=== PATIENT | female | born 1995 | race Caucasian/White ===

== ENCOUNTER 2023-07-22 09:26 | Outpatient (OUT) | payer OTHER, SELFPAY ==
--- NOTE | 2023-07-22 09:34 | US_ITS ---
[address] [address] Patient Name: KAMRON ADAM MRN: [id number] date: 1995 Sex: F Assigned Patient Location: US Current Patient Location: Accession/Order Number: [id number] Exam Date: 07/22/2023 10:00 Report Date: 07/23/2023 17:37 At the request of: AIDEE CORBIN Procedure: US OB transvaginal EXAMINATION: US OB transvaginal HISTORY: MISSED MENSES COMPARISON: No relevant comparison available. FINDINGS: Heart Rate: 176.0 bpm Number: 1.0 Gestational sac: 4.4 cm, 10 weeks 0 days CRL: 2.4 cm, 9 weeks 1 day Yolk sac: 4.6 mm The uterus is normal, anteverted, anteflexed The ovaries are normal. Cervix: Closed, 4 cm GESTATIONAL AGE: Age by EDC: 10 weeks 6 days LUKAS by EDC: 02/11/2024 Age by US: 9 weeks 1 day LUKAS by US: 02/23/2024 US/US OB transvaginal IMPRESSION: Viable marquez intrauterine gestation measuring 9 weeks 1 day Electronically authenticated by: ITZ CHATTERJEE Date: 07/23/2023 17:37
== END 2023-07-22 09:27 | disposition home or self-care (01) ==
LOC: US 09:31
PROVIDERS: Visit Provider Obstetrics & Gynecology
DX: Z34.91 Encounter for supervision of normal pregnancy, unspecified, first trimester (principal); N92.6 Irregular menstruation, unspecified
CPT/HCPCS: 76817

== ENCOUNTER 2023-07-30 09:08 | Outpatient (OUT) | payer BC, SELFPAY ==
[2023-07-30 09:40] LABS: Basophils Percent Auto 0.3 % (0.2-2.0); Eosinophils Absolute Auto 0.1 10^3/uL (0.0-0.7); Eosinophils Percent Auto 1.8 % (0.9-7.0); Hematocrit 36.6 % (36.0-48.0); Hemoglobin 12.8 g/dL (12.0-16.0); Immature Granulocytes Abs Auto 0.04 10^3/uL (0.00-0.03); Immature Granulocytes Pct Auto 0.5 % (0.0-0.5); Lymphocytes Absolute Auto 1.4 10^3/uL (1.2-3.8); Lymphocytes Percent Auto 18.5 % (20.5-60.0); Mean Platelet Volume 8.9 fL (9.5-13.5); Monocytes Absolute Auto 0.5 10^3/uL (0.3-0.8); Monocytes Percent Auto 7.4 % (1.7-12.0); Neutrophils Absolute Auto 5.2 10^3/uL (1.4-6.5); Neutrophils Percent Auto 71.5 % (43.0-75.0); Platelet Count 276 10^3/uL (150-450); Red Blood Count 4.41 10^6/uL (4.20-5.40); Red Cell Distribution Width 12.3 % (11.0-15.0); White Blood Count 7.3 10^3/uL (4.0-11.0)
[2023-07-30 09:51] LABS: Estimated Average Glucose 91 mg/dL; Glycohemoglobin A1C 4.8 % (4.5-6.2)
[2023-07-30 10:06] LABS: BOX Test Sent Out Y
[2023-07-30 10:08] LABS: Thyroid Stimulating Hormone 1.908 uIU/mL (0.358-3.740)
[2023-07-31 08:12] LABS: HBsAg Screen Negative (Negative); HCV Ab Non Reactive (Non Reactive); Rapid Plasma Reagin, Quant Non Reactive (NonRea<1:1)
[2023-07-31 09:07] LABS: Rubella Antibodies, IgG <0.90 index (Immune >0.99)
[2023-07-31 11:07] LABS: HIV Ab/p24 Ag Screen Non Reactive (Non Reactive)
== END 2023-07-30 09:09 | disposition home or self-care (01) ==
PROVIDERS: Visit Provider Obstetrics & Gynecology
DX: Z34.80 Encounter for supervision of other normal pregnancy, unspecified trimester (principal); N92.6 Irregular menstruation, unspecified
CPT/HCPCS: 36415; 83036; 84443; 85025; 86592; 86762; 86803; 86850; 86900; 86901; 87086; 87340; 87389

== ENCOUNTER 2023-09-20 20:25 | Outpatient (REF) | payer BC, SELFPAY ==
[2023-09-27 15:09] LABS: Age Gdln ACOG Testing Note (.); IGP, rfx Aptima HPV ASCU Note (.)
== END 2023-09-20 20:26 | disposition home or self-care (01) ==
LOC: LAB 20:25
PROVIDERS: Visit Provider Obstetrics & Gynecology
DX: Z01.419 Encounter for gynecological examination (general) (routine) without abnormal findings (principal)
CPT/HCPCS: G0145

== ENCOUNTER 2023-10-10 14:36 | Outpatient (OUT) | payer BC, SELFPAY ==
--- NOTE | 2023-10-10 14:38 | US_ITS ---
[address] [address] Patient Name: KAMRON ADAM MRN: [id number] date: 1995 Sex: F Assigned Patient Location: US Current Patient Location: Accession/Order Number: [id number] Exam Date: 10/10/2023 14:40 Report Date: 10/11/2023 15:35 At the request of: AIDEE CORBIN Procedure: US OB anatomy EXAMINATION: US OB anatomy, US OB transvaginal HISTORY: SECOND TRIMESTER Z34.92 COMPARISON: No relevant comparison available. TECHNIQUE: Transabdominal sonographic examination was performed for obstetrical and evaluation. FINDINGS: Number: 1 Heart Rate: 137.0 bpm H.B. /min Amniotic Fluid Volume: Subjectively normal Placental Location: ANTERIOR with lower margin 8.2 cm from os. Cervix Length: 4.5 cm; closed. ANATOMY: Normal Structures -cerebellum, choroid plexus, cisterna magna, lateral cerebral ventricles, orbits, midline falx, hard palate, four-chamber heart, RVOT, LVOT, stomach, kidneys, bladder, umbilical cord insertion into abdomen, three-vessel cord, right upper extremity, left upper extremity, right lower extremity, left lower extremity. SUBOPTIMALLY SEEN: Spine due to position. ABNORMALITIES: None BIOMETRY: BPD: 4.8 cm 20 weeks 4 days HC: 18.2 cm 20 weeks 4 days AC: 15.2 cm 20 weeks 3 days FL: 3.5 cm 20 weeks 6 days EFW:366.1 grams; 48% FL/AC: 22.8 FL/BPD: 71.6 HC/AC: 1.2 GESTATIONAL AGE: Age by EDC: 20 weeks 4 days LUKAS by EDC: 02/15/2024 Age by current US: 20 weeks 4 days LUKAS by current US: 02/23/2024 US/US OB anatomy IMPRESSION: 1. Single live intrauterine with growth detailed above. 2. Suboptimal visualization of the spine due to position. Electronically authenticated by: EDDY NIELSEN Date: 10/11/2023 15:35
--- NOTE | 2023-10-10 14:38 | US_ITS ---
[address] [address] Patient Name: KAMRON ADAM MRN: [id number] date: 1995 Sex: F Assigned Patient Location: US Current Patient Location: Accession/Order Number: [id number] Exam Date: 10/10/2023 14:40 Report Date: 10/11/2023 15:35 At the request of: AIDEE CORBIN Procedure: US OB transvaginal EXAMINATION: US OB anatomy, US OB transvaginal HISTORY: SECOND TRIMESTER Z34.92 COMPARISON: No relevant comparison available. TECHNIQUE: Transabdominal sonographic examination was performed for obstetrical and evaluation. FINDINGS: Number: 1 Heart Rate: 137.0 bpm H.B. /min Amniotic Fluid Volume: Subjectively normal Placental Location: ANTERIOR with lower margin 8.2 cm from os. Cervix Length: 4.5 cm; closed. ANATOMY: Normal Structures -cerebellum, choroid plexus, cisterna magna, lateral cerebral ventricles, orbits, midline falx, hard palate, four-chamber heart, RVOT, LVOT, stomach, kidneys, bladder, umbilical cord insertion into abdomen, three-vessel cord, right upper extremity, left upper extremity, right lower extremity, left lower extremity. SUBOPTIMALLY SEEN: Spine due to position. ABNORMALITIES: None BIOMETRY: BPD: 4.8 cm 20 weeks 4 days HC: 18.2 cm 20 weeks 4 days AC: 15.2 cm 20 weeks 3 days FL: 3.5 cm 20 weeks 6 days EFW:366.1 grams; 48% FL/AC: 22.8 FL/BPD: 71.6 HC/AC: 1.2 GESTATIONAL AGE: Age by EDC: 20 weeks 4 days LUKAS by EDC: 02/15/2024 Age by current US: 20 weeks 4 days LUKAS by current US: 02/23/2024 US/US OB transvaginal IMPRESSION: 1. Single live intrauterine with growth detailed above. 2. Suboptimal visualization of the spine due to position. Electronically authenticated by: EDDY NIELSEN Date: 10/11/2023 15:35
== END 2023-10-10 14:37 | disposition home or self-care (01) ==
LOC: US 14:37
PROVIDERS: Visit Provider Obstetrics & Gynecology
DX: Z34.92 Encounter for supervision of normal pregnancy, unspecified, second trimester (principal); Z3A.20 20 weeks gestation of pregnancy
CPT/HCPCS: 76805; 76817

== ENCOUNTER 2023-11-07 12:56 | Outpatient (OUT) | payer BC, SELFPAY ==
--- NOTE | 2023-11-07 12:58 | US_ITS ---
[address] [address] Patient Name: KAMRON ADAM MRN: [id number] date: 1995 Sex: F Assigned Patient Location: US Current Patient Location: US Accession/Order Number: [id number] Exam Date: 11/07/2023 12:59 Report Date: 11/07/2023 14:25 At the request of: AIDEE CORBIN Procedure: US OB growth PROCEDURE: US OB growth HISTORY: SV SPINE COMPARISON: None. TECHNIQUE: Transabdominal sonographic examination was performed for obstetrical and evaluation. FINDINGS: Number: 1 Heart Rate: 133.0 bpm H.B. /min Amniotic Fluid Volume: Subjectively normal position: Breech presentation, longitudinal lie Placental Location: ANTERIOR, grade 1 Normal anatomy: Spine GESTATIONAL AGE: Age by EDC: 24 weeks 4 days LUKAS by EDC: 02/23/2024 US/US OB growth IMPRESSION: Normal spine *Reference: [facility] Practice Guideline for the performance of Obstetric Ultrasound Examinations, August 28, 2007. Electronically authenticated by: ITZ CHATTERJEE Date: 11/07/2023 14:25
== END 2023-11-07 12:57 | disposition home or self-care (01) ==
LOC: US 12:56
PROVIDERS: Visit Provider Obstetrics & Gynecology
DX: Z36.2 Encounter for other antenatal screening follow-up (principal); Z3A.24 24 weeks gestation of pregnancy
CPT/HCPCS: 76816

== ENCOUNTER 2023-12-03 10:20 | Outpatient (OUT) | payer BC, SELFPAY ==
--- OUTSIDE RECORDS SUMMARY | 2023-12-03 10:23 | XMS_ITS | CCD ---
Author Name Unknown Address [address] [facility] [address] [place] [address] Organization [facility] Care Team Providers Care Manager Package Name Role Phone Behzad Dumas Primary Care Provider [phone] MARKER, ROBBY Admitting Unavailable MARKER, ROBBY Attending Unavailable MISC, DOCTOR Consulting Unavailable MARKER, ROBBY Consulting Unavailable KIRRENARD, ALCON Consulting Unavailable JOVITA, DAMIAN Consulting Unavailable SELF, SELF Referring Unavailable BEHZAD DUMAS Attending Unavailable LUZMA, BEHZAD Primary Care Unavailable AMANDA PRATER Attending Unavailable IADEE CORBIN Attending Unavailable Medications Current Medications Medication Drug Class(es) Dates Sig (Normalized) Sig (Original) citalopram 20 mg oral tablet (12 sources) Serotonin Reuptake Inhibitor Start: 08-06-2019 End: 09-11-2019 take 1 tablet by mouth once daily citalopram 20 MG Tab tablet Indications: Anxiety Take 1 tablet by mouth daily. 90 tablet 3 09/11/2019 Active Start: 06-12-2018 End: 08-04-2019 take 1 tablet by mouth once daily citalopram (CELEXA) 20 MG Tab tablet Indications: Anxiety Take 1 tablet by mouth daily. 30 tablet 0 06/28/2019 08/04/2019 Discontinued (Reorder) Problems Problem Classification Problem Date Documented Date Episodic/Chronic Anxiety disorders (3 sources) Anxiety; Translations: [Anxiety] Chronic Blindness and vision defects (1 source) Visual disturbance; Translations: [Episode of visual disturbance] Episodic External cause codes: Cut/carvalho (1 source) Contact with sharp glass, initial encounter; Translations: [CONTACT W/SHARP GLASS INITIAL ENC] Onset: 02-07-2020 Headache; including migraine (1 source) Headache; Translations: [Chronic nonintractable headache, unspecified headache type] Episodic Immunizations and screening for infectious disease (1 source) Encounter for immunization; Translations: [ENCOUNTER FOR IMMUNIZATION] Onset: 02-07-2020 Episodic Open wounds of extremities (4 sources) Laceration without foreign body of right lesser toe(s) without damage to nail, initial encounter; Translations: [LAC NO FB RT LSR TOES NO DMG NL INT] Onset: 02-05-2020 Episodic Results Test Name Value Interpretation Reference Range Facil ity CT TEMP BONES WO IVCONon CT TEMP BONES WO IVCON * * *Final Report* * * DATE OF EXAM: Jun 17 2022 6:34PM [facility] 0512 - CT TEMP BONES WO IVCON / PROCEDURE REASON: Cholesteatoma, known or suspected (Ped 0-18y) * * * * Physician Interpretation * * * * EXAMINATION: CT TEMP BONES WO IVCON CLINICAL HISTORY: Cyst left ear, noted by PCP, referred for CT. TECHNIQUE: Spiral 0.6 mm axial scans through the temporal bones without contrast in high resolution bony algorithm. Coronal planar reconstructions provided. MQ: [id number] CT Radiation dose: Integrated Dose-Length Product (DLP) for this visit = 366 mGy*cm. CT Dose Reduction Employed: Automated exposure control (AEC) COMPARISON: None. RESULT: RIGHT: External Auditory Canal/Superficial Soft Tissues: EAC is patent. Overlying superficial soft tissues and the tissues of the visualized inferotemporal fossa are within normal limits. Mastoid Air Cells and Middle Ear Cavities: Mastoid air cells and middle ear cavities are clear. Ossicles: Ossicles are normally aligned and intact. Inner Ear Structures: Inner ear structures are within normal limits. No evidence of dysmorphism, bony destruction or dehiscence. Internal Auditory Canals: IAC is within normal limits of caliber and configuration. Skull Base: No evidence of bony destruction. LEFT: External Auditory Canal/Superficial Soft Tissues: EAC is patent. Overlying superficial soft tissues and the tissues of the visualized inferotemporal fossa are within normal limits. Mastoid Air Cells and Middle Ear Cavities: Mastoid air cells and middle ear cavities are clear. Ossicles: Ossicles are normally aligned and intact. Inner Ear Structures: Inner ear structures are within normal limits. No evidence of dysmorphism, bony destruction or dehiscence. Internal Auditory Canals: IAC is within normal limits of caliber and configuration. Skull Base: No evidence of bony destruction. Hired Worker (topogram) images: No additional findings. IMPRESSION: NORMAL STUDY. Porcelain Finisher: KAITLYN Transcribe Date/Time: Jun 17 2022 6:45P Dictated by : GREYSON TSAI DO This examination was interpreted and the report reviewed and electronically signed by: MEGAN MARX MD on Jun 17 2022 6:58PM EST [id number] [facility] ED NOTEon 06-17-2022 ED NOTE HNO ID: [id number] Author: Harika Khoury RN Service: Emergency Medicine Author Type: Registered Nurse Type: ED Notes Filed: 06/17/2022 7:34 PM Note Text: Discharge instructions provided to patient and family. Verbalized understanding. Alert and oriented. Ambulated with steady gait out of ED with family. [facility] ED NOTE HNO ID: [id number] Author: Rubio Platt RN Service: Nursing Author Type: Registered Nurse Type: ED Notes Filed: 06/17/2022 6:02 PM Note Text: Patient presenting to the ED due to a cyst on her left eardrum. Per the patient, her ENT Dr. Instructed her to come to the ED for a CT scan due to fear that the cyst is spreading. Patient does report at times she is dizzy when bending over and while driving her car she sometimes gets blurred vision. Will continue to assess and monitor the patient [facility] ED PROV NOTEon 06-17-2022 ED PROV NOTE HNO ID: [id number] Author: Cuong Lopez MD Service: Emergency Medicine Author Type: Physician Type: ED Provider Notes Filed: 06/18/2022 1:20 AM Note Text: ED Provider Note Patient Name: Kamron Butcher : 1995 SERVICE DATE: 06/17/22 History Patient presents with: Ear Problem: Pt states has a cyst on left ear and can go to brain . Pt's ear dr told pt need a STAT CT scan. Pt ENT told pt there is no eardrum left . Pt endorsing blurry vision and bad headaches. Pt having left neck pain and unable to hear out of left ear. Ms. Butcher is a 27-year-old female with a history of anxiety who presents to the ED for evaluation of a known cholesteatoma. She was treated for otitis media with multiple antibiotics by her PCP in April. She was also seen in the ED on 06/03 for increasing pain in the left ear and seen by ENT who felt outpatient follow up was appropriate. CT scan was deferred at that time. Two days ago she saw an an ENT PA at [facility] who diagnosed her with a cholesteatoma and recommended outpatient CT scan and follow-up with ENT doc after imaging. This appointment is scheduled for July 15; however, patient is worried that this cholesteatoma is potentially growing into her brain and she would like imaging and to be seen by ENT sooner than her scheduled appointment. She endorses intermittent vertigo and decreased hearing in the left ear. Denies headaches, vision changes, ear pain/ drainage. PMH Anxiety Chronic otitis media Social History Tobacco Use - Smoking status: Not on file - Smokeless tobacco: Not on file Substance and Sexual Activity - Alcohol use: Not on file - Drug use: Not on file - Sexual activity: Not on file ALLERGIES No Known Allergies Review of Systems Constitutional: Negative for chills and fever. HENT: Positive for hearing loss. Negative for ear discharge, ear pain and facial swelling. Eyes: Negative for visual disturbance. Neurological: Positive for dizziness. Negative for headaches. All other systems reviewed and are negative. Physical Exam Vitals [06/17/22 1349] BP Pulse Temp Temp src Resp SpO2 Weight Height 100/80 60 36.8 ?C (98.2 ?F) Oral 18 100 % 68 kg (150 lb) 1.676 m (5' 6 ) Physical Exam Vitals and nursing note reviewed. Constitutional: General: She is not in acute distress. Appearance: Normal appearance. HENT: Head: Atraumatic. Right Ear: Tympanic membrane normal. Left Ear: No drainage, swelling or tenderness. No hemotympanum. Tympanic membrane is not erythematous. Ears: Comments: Cholesteatoma visualized in the left ear canal Mouth/Throat: Mouth: Mucous membranes are moist. Pharynx: No oropharyngeal exudate or posterior oropharyngeal erythema. Eyes: Extraocular Movements: Extraocular movements intact. Pupils: Pupils are equal, round, and reactive to light. Cardiovascular: Rate and Rhythm: Normal rate and regular rhythm. Heart sounds: Normal heart sounds. Pulmonary: Effort: Pulmonary effort is normal. Breath sounds: No wheezing, rhonchi or rales. Skin: General: Skin is warm and dry. Findings: No rash. Neurological: General: No focal deficit present. Mental Status: She is alert and oriented to person, place, and time. Psychiatric: Mood and Affect: Mood normal. Behavior: Behavior normal. Diagnostic Testing Noncontrast CT Temporal Bones RIGHT: External Auditory Canal/Superficial Soft Tissues: ? ?EAC is patent. Overlying superficial soft tissues and the tissues of the visualized inferotemporal fossa are within normal limits. Mastoid Air Cells and Middle Ear Cavities: ? ?Mastoid air cells and middle ear cavities are clear. Ossicles: ? ?Ossicles are normally aligned and intact. Inner Ear Structures: ? ?Inner ear structures are within normal limits. No evidence of dysmorphism, bony destruction or dehiscence. Internal Auditory Canals: ? ?IAC is within normal limits of caliber and configuration. Skull Base: ? ?No evidence of bony destruction. LEFT: External Auditory Canal/Superficial Soft Tissues: ? ?EAC is patent. Overlying superficial soft tissues and the tissues of the visualized inferotemporal fossa are within normal limits. Mastoid Air Cells and Middle Ear Cavities: ? ?Mastoid air cells and middle ear cavities are clear. Ossicles: ? ?Ossicles are normally aligned and intact. Inner Ear Structures: ? ?Inner ear structures are within normal limits. No evidence of dysmorphism, bony destruction or dehiscence. Internal Auditory Canals: ? ?IAC is within normal limits of caliber and configuration. Skull Base: ? ?No evidence of bony destruction. ED Course / Clinical Impression ED Course as of 06/18/22 0120 Cuong Lopez's Documentation Tiffanie Jun 17, 2022 1852 ED STAFF ATTENDING MDM 27 year old with recent bouts of ear pain/otitis, primary Business Services Director diagnosed likely cholesteatoma, recommended CT, patient concerned re: invasion/spread/mor (more content not included)... [facility] CONSULTon 06-04-2022 CONSULT HNO ID: [id number] Author: Carolann Pruitt MD Service: Otolaryngology Author Type: Resident Type: Consults Filed: 06/04/2022 12:33 AM Note Text: OTOLARYNGOLOGY HEAD AND NECK SURGERY CONSULT NOTE Patient: Kamron Butcher : 1995 Date of Service: June 04, 2022 ASSESSMENT AND PLAN: Kamron Butcher is a 26 year old female with history of chronic otitis media and known left TM perforation, migraines who presented to the ED after being told at urgent care that she had a left TM cyst and needed urgent evaluation. The patient has also been experiencing symptoms of nausea and vomiting, has a known history of migraines and has had n/v symptoms in the past as well. Does not have any ear pain or symptoms. On exam left TM appears perforated with thick scar tissue at the anterior portion of the TM, no clear cyst visualized with otoscope. Head and Neck Surgery was consulted for ear evaluation. - No acute surgical intervention needed - Patient has no symptoms at this point and known left TM perforation - Patient has follow up scheduled with [facility] on 06/15 - I can request as well but she states she will follow up with [facility] - Reassured patient - Please page Head and Neck Surgery with any questions or concerns Carolann Pruitt MD PGY-2 Otolaryngology- Head and Neck Surgery Pager: [phone] For all concerns from 5pm to 7am or on the weekends please page [phone]. - - - - - - - - - - - - - - - - - - - - - - - - - - - - - - - - - - - - - - - - - - - - - - - HPI: 26 year old female with history of chronic otitis media and known left TM perforation, migraines who presented to the ED after being told at urgent care that she had a left TM cyst and needed urgent evaluation. The patient has also been experiencing symptoms of nausea and vomiting, has a known history of migraines and has had n/v symptoms in the past as well. Has no ear pain, drainage, tinnitus. No longer is nauseous. No past medical history on file. No past surgical history on file. No family history on file. Social History Tobacco Use - Smoking status: Not on file - Smokeless tobacco: Not on file Substance Use Topics - Alcohol use: Not on file - Drug use: Not on file COMPLETE REVIEW OF SYSTEMS: Negative ROS except as otherwise indicated in the history of present illness section. MEDICATIONS: No current facility-administered medications for this encounter. No current outpatient medications on file. ALLERGIES No Known Allergies PHYSICAL EXAM: Vitals - BP 118/71 Pulse 65 Temp 36.3 ?C (97.3 ?F) (Temporal) Resp 16 Ht 167.6 cm (5' 6 ) Wt 69.4 kg (153 lb) SpO2 100% BMI 24.69 kg/m? Constitutional - General Appearance: well developed, well nourished, without obvious deformities Communication: speaks with a normal voice without hoarseness Overall: no obvious scars, lesions or masses Ears: External auditory canals patent, left tympanic membrane with perforation, anterior portion of left TM appears scarred/thick tissue, no cyst visualized; right TM appears normal. Left mastoid non-tender, non erythematous. Carolann Pruitt MD PGY-2 Otolaryngology- Head and Neck Surgery Pager: [phone] For all concerns from 5pm to 7am or on the weekends please page [phone]. [facility] ED NOTEon 06-04-2022 ED NOTE HNO ID: [id number] Author: Kennedi Brown RN Service: Emergency Medicine Author Type: Registered Nurse Type: ED Notes Filed: 06/04/2022 12:43 AM Note Text: This RN to the room to provide pt with DC/Follow up/Care instructions. Pt verbalizes understanding. Pt ambulates with steady gait, moves all extremities independently, chest rise and fall equal, resps easy unlabored, no signs of distress noted. [facility] ED NOTE HNO ID: [id number] Author: Kennedi Brown RN Service: Emergency Medicine Author Type: Registered Nurse Type: ED Notes Filed: 06/04/2022 12:06 AM Note Text: ENT and Attending at Bedside [facility] ED PROV NOTEon 06-04-2022 ED PROV NOTE HNO ID: [id number] Author: Tyler Brock MD Service: Emergency Medicine Author Type: Physician Type: ED Provider Notes Filed: 06/04/2022 1:29 AM Note Text: ED Provider Note Patient Name: Kamron Butcher : 1995 SERVICE DATE: 06/03/22 History Patient presents with: Cyst: pt reports 2 weeks ago saw doctor, LIP noticed cyst on L ear drum, no pain at that time; N/V/vertigo sx, unsure if it was COVID, got tested at urgent care yesterday and was negative but pt reports having increased pain in L ear, pt reports draininage coming out of L ear earlier today. not actively draining in triage/at this time Nausea AND Vomiting: vertigo x1 month, N/V for 5 days; pt reports for over a month had ear infection, took abx as prescribed 26yo F with Hx of chronic otitis media, migraine, PCOS, and anxiety presented to ED after urgent clinic visit for left ear pain and discharge. She states she been treated for otitis media for the past month, last seen by PCP 05/27/2022 for left ear cyst, left ear decreased hearing, and has a follow up with ENT 06/15/2022. Patient was seen today at bedside with . Patient reports ear pain and drainage, nausea, and vomiting of 5 days. Vertigo HPI No past medical history on file. No past surgical history on file. No family history on file. Social History Tobacco Use - Smoking status: Not on file - Smokeless tobacco: Not on file Substance and Sexual Activity - Alcohol use: Not on file - Drug use: Not on file - Sexual activity: Not on file ALLERGIES No Known Allergies Review of Systems Constitutional: Negative for chills and fever. HENT: Positive for ear discharge and ear pain. Negative for facial swelling, rhinorrhea, sinus pain and sore throat. Eyes: Positive for visual disturbance. Negative for pain. Respiratory: Negative for cough and shortness of breath. Cardiovascular: Negative for chest pain. Gastrointestinal: Positive for nausea and vomiting. Negative for abdominal pain, blood in stool and diarrhea. Genitourinary: Positive for pelvic pain. Skin: Negative for rash. Neurological: Negative for tremors and headaches. Psychiatric/Behavioral: Negative for confusion. The patient is not nervous/anxious. Physical Exam Vitals [06/03/22 191] BP Pulse Temp Temp src Resp SpO2 Weight Height 109/69 61 36.3 ?C (97.3 ?F) Temporal 20 100 % 69.4 kg (153 lb) 1.676 m (5' 6 ) Physical Exam Constitutional: Appearance: She is well-developed and normal weight. HENT: Head: Normocephalic. Right Ear: No tenderness. Left Ear: Ear canal and external ear normal. Decreased hearing noted. Tenderness present. No drainage. There is no impacted cerumen. No foreign body. Tympanic membrane is perforated. Tympanic membrane is not erythematous. Ears: Comments: Healing TM Eyes: General: Vision grossly intact. No allergic shiner. Extraocular Movements: Extraocular movements intact. Right eye: Normal extraocular motion. Left eye: Normal extraocular motion. Cardiovascular: Rate and Rhythm: Normal rate and regular rhythm. Pulmonary: Effort: Pulmonary effort is normal. Abdominal: General: Abdomen is flat. Palpations: Abdomen is soft. Tenderness: There is no abdominal tenderness. Musculoskeletal: Right lower leg: No edema. Left lower leg: No edema. Skin: General: Skin is warm and dry. Neurological: General: No focal deficit present. Mental Status: She is alert and oriented to person, place, and time. Psychiatric: Attention and Perception: Attention normal. Mood and Affect: Mood normal. Speech: Speech normal. Diagnostic Testing ED Labs Ordered and Reviewed - No data to display Procedures ED Course / Clinical Impression Clinical Impressions as of 06/04/22 0004 Chronic otitis media of left ear Ear pain, left Nausea and vomiting, unspecified vomiting type Patient did not have constitutional symptom, vital stable. On ear exam, noted healing TM and perforation however did not have cyst or abscess formation. Therefore further imaging and lab were deferred and advised to follow up with her ENT appointment on 06/15 and additionally arranged ENT appointment at [facility]. MDM / Disposition / Plan 26yo F with Hx of chronic otitis media presented with ear pain and discharge, was told by urgent clinic care LIP yesterday to be evaluated by ENT at ED for possible cyst. Seen by ENT talent acquisition lead at ED, and thought it is stable and can be followed up outpatient. CT temporal bones without contrast was deferred due to lack of constitutional symptom. The patient was DISCHARGED: Counseled patient regarding suspected diagnosis AND need for follow-up. Discharged home with verbal and written instructions. They were instructed to return as needed for persistent or worsening symptoms or any new concerns. Condition at time of disposition: stable SIGNATURE: MD Gurpreet Orellana MD Resident 06/04/22 0020 At (more content not included)... [facility] ED NOTEon 06-03-2022 ED NOTE HNO ID: [id number] Author: STACY Rose Service: Emergency Medicine Author Type: Clinical Case Management Manager Type: ED Notes Filed: 06/03/2022 7:15 PM Note Text: Taking pt vs. [facility] MRI BRAIN WITHOUT CONTRASTon 08-08-2020 IMPRESSION: No intracranial abnormality. Normal MRI of the brain without contrast. [facility] EXAMINATION: MRI OF THE BRAIN WITHOUT CONTRAST 08/08/2020 1:36 pm TECHNIQUE: Multiplanar multisequence MRI of the brain was performed without the administration of intravenous contrast. COMPARISON: None. HISTORY: HISTORY: Past year having blurred vision and ENGLE's getting worse recently. No trauma; FINDINGS: INTRACRANIAL STRUCTURES/VENTRICLES: No acute infarction. No mass effect or midline shift. No acute intracranial hemorrhage. The ventricles and sulci are normal in size and configuration. The sellar/suprasellar regions appear unremarkable. The normal signal voids within the major intracranial vessels appear maintained. ORBITS: The visualized portion of the orbits demonstrate no acute abnormality. SINUSES: The visualized paranasal sinuses and mastoid air cells are well aerated. BONES/SOFT TISSUES: The bone marrow signal intensity appears normal. The soft tissues demonstrate no acute abnormality. [facility] User, Interfaces - 08/08/2020 2:09 PM EDT EXAMINATION: MRI OF THE BRAIN WITHOUT CONTRAST 08/08/2020 1:36 pm TECHNIQUE: Multiplanar multisequence MRI of the brain was performed without the administration of intravenous contrast. COMPARISON: None. HISTORY: HISTORY: Past year having blurred vision and ENGLE's getting worse recently. No trauma; FINDINGS: INTRACRANIAL STRUCTURES/VENTRICLES: No acute infarction. No mass effect or midline shift. No acute intracranial hemorrhage. The ventricles and sulci are normal in size and configuration. The sellar/suprasellar regions appear unremarkable. The normal signal voids within the major intracranial vessels appear maintained. ORBITS: The visualized portion of the orbits demonstrate no acute abnormality. SINUSES: The visualized paranasal sinuses and mastoid air cells are well aerated. BONES/SOFT TISSUES: The bone marrow signal intensity appears normal. The soft tissues demonstrate no acute abnormality. IMPRESSION IMPRESSION: No intracranial abnormality. Normal MRI of the brain without contrast. [facility] XR TOES RT MIN 2 Von 02-04- 020 XR TOES RT MIN 2 V IMAGES REVIEWED: XR TOES RT MIN 2 V COMPARISON: None available. CLINICAL INDICATION: Trauma, pain. FINDINGS/IMPRESSION: 1. Questionable cortical incongruity in the dorsal aspect of a fused fifth middle and distal phalanx on the lateral view. Correlate for focal bony tenderness. The fifth toe appears intact on the frontal and oblique views. 2. No dislocation. Normal [facility] Vital Signs Date Time Vital Sign Value Performing Clinician Barron aguilera 09-11-2019 12:49-0400 BMI (Body Mass Index) 26.96 kg/m2 Behzad Dumas [facility] 09-11-2019 12:49-0400 Body Temperature 97.11 [degF] [facility] 09-11-2019 12:49-0400 Body weight 73.48 kg [facility] 09-11-2019 12:49-0400 BP Diastolic 72 mm[Hg] [facility] 09-11-2019 12:49-0400 BP Systolic 112 mm[Hg] [facility] 09-11-2019 12:49-0400 Height 165.1 cm [facility] 09-11-2019 12:49-0400 Pulse (Heart Rate) 53 /min Behzad Durham [facility] 09-11-2019 12:49-0400 Pulse Oximetry 98 % Behzad Durham [facility] 09-11-2019 12:49-0400 Respiratory Rate 16 /[facility] Date Encounter Type Care Provider Facility Start: 11-17-2023 End: 11-17-2023 ambulatory AIDEE REYNAZIO Not Available Start: 10-18-2023 End: 10-18-2023 ambulatory AMANDA JOSI Not Available Start: 10-29-2021 ambulatory SELF SELF [facility] ([place]) Start: 08-08-2020 End: 08-08-2020 Subsequent hospital visit by physician Behzad Dumas Work Phone: [facility] Comment on above: Arrived Start: 02-05-2020 End: 02-06-2020 Patient encounter procedure ROBBY MARKER Facility:[facility] Start: 09-11-2019 End: 09-11-2019 Letter encounter Provider [place] [facility] Start: 09-11-2019 End: 09-11-2019 Office outpatient visit 15 minutes Behzad Dumas Work Phone: [facility] Comment on above: Anxiety (Primary Dx) Start: 08-04-2019 End: 08-04-2019 Refill Behzad Dumas Work Phone: [facility] [facility] Comment on above: Anxiety (Primary Dx) Start: 07-24-2019 End: 07-24-2019 Letter encounter Behzad Dumas Work Phone: [facility] Start: 06-28-2019 End: 06-28-2019 Refill Behzad Dumas Work Phone: [facility] Comment on above: Anxiety Start: 06-20-2019 End: 06-20-2019 Refill Behzad Dumas Work Phone: [facility] Start: 06-14-2019 End: 06-14-2019 Letter encounter Behzad Dumas Work Phone: [facility] Start: 06-14-2019 End: 06-14-2019 Refill Behzad Dumas Work Phone: [facility] Procedures Date Procedure Procedure Detail Performing Clinician Start: 08-08-2020 MRI of brain and bra in stem Behzad Dumas Work Phone: Plan of Treatment Date Care Activity Detail Author Start: 07-29-2020 Influenza vaccination INFLUENZA VACC INE (#1) [facility] Start: 09-11-2019 End: 09-11-2019 Office Visit 09/11/2019 Office Visit Family Medicine/Behzad Ruth DO [address] [place] [address] [phone] Arrived [facility] Comment on above: Arrived Start: 07-29-2019 Influenza vaccination INFLUENZA VACC INE (#1) [facility] Start: 07-18-2019 End: 07-18-2019 Office Visit 07/18/2019 Office Visit Family Medicine/PedBehzad Cruz DO [address] [place] [address] [place] [address] [phone] [facility] Start: 2017 Screening for malign ant neoplasm of cervix [facility] Start: 2015 Third diphtheria, te tanus and acellular pertussis (DTaP) vaccination TDAP (ADULT) [facility] Start: 2014 Tetanus vaccination [facility] Start: 2012 Screening for Chlamy axel trachomatis CHLAMYDIA SCREEN [facility] Start: 2011 Vaccination for brando n papillomavirus HPV VACCINE ADOL (1 - Female 3-dose series) [facility] Start: 2009 HIV screening HIV SCREENING DISCUSSION [facility] Start: 2007 Vaccination for brando n papillomavirus HPV VACCINE ADOL (1 - 2-dose series) [facility] Start: 1996 GONORRHEA SCREEN GONORRHEA SCREEN [facility] Payers Date Payer Category Payer Unknown [id number] 2016 Unknown [employer] [place] xxxxxxxxxxxx 2016-Present xxxxxxxxxxxx [id number] 2016 Unknown [employer] [place] [id number] 2016-Present [id number] 1996 Unknown [id number] 1996 Unknown [id number] 1996 Unknown [id number] 1996 Unknown [id number] 1959 Unknown [id number] Social History Date Type Detail Facility Start: 06-12-2018 End: 08-05-2020 Tobacco smoking status UTIS Never smoker [facility] Start: 01-05-2017 Alcohol Comment rarely [facility] Sex Assigned At Not on file [facility] Start: 06-12-2018 End: 09-11-2019 Alcohol intake Yes [facility] Start: 08-05-2020 Tobacco use and exposure Never used [facility] Start: 08-05-2020 Alcohol intake Current drinke r of alcohol (finding) [facility] Exposure to SARS-CoV -2 (event) Not sure [facility] Progress note 06-17-2022 Note Date & Type Note Facility 06-17-2022 Note HNO ID: [id number] Author: Sage Marx Jr., [place] Service: Radiology Author Type: Case Management Manager Type: Progress Notes Filed: 06/17/2022 6:37 PM Note Text: Radiology Service Progress Note PATIENT NAME: Kamron Butcher DATE OF SERVICE: June 17, 2022 TIME: 6:36 PM PATIENT IDENTITY VERIFICATION COMPLETED USING TWO (2) IDENTIFIERS: Name and Date of confirmed by patient verbally and Name and Date of confirmed by identification band. FALL SCREENING: Has the patient had 2 falls in the last year or 1 fall with injury or currently using an Ambulatory Assistive Device (Walker, Cane, Wheelchair, Crutches, etc.)? Emergency Room Patient: Screened in ED PATIENT GENDER DATA: Female. status: : No status: NO. PATIENT RELEVANT IMPLANT DATA REVIEWED: Yes RADIOLOGY DEPARTMENT: CT; Exam(s) Completed: Temporal Bones PERIPHERAL IV DATA: Not applicable SIGNED BY: STACY Horner Jr June 17, 2022 6:36 PM [facility] History of Present Illness * Behzad Dumas, - 09/11/2019 1:00 PM EDT HPI She presents today for follow up of anxiety. She has been treated with Celexa for over 3 years. Hercurrent symptoms include worrying, which is minimal. She denies current suicidal or homicidal ideation. Risk factors include previous episode of anxiety. She complains of the following side effects from the treatment: none. Taking medication daily as prescribed except for a few skipped doses because she was running low. She states she can tell considerable difference in mood if she skips a few doses (irritable, out of it ). ROS General: no fevers, no unintentional weight loss Cardiovascular: no chest pain, no palpitations, no LE edema Respiratory: no cough, no shortness of breath Gastrointestinal: no abdominal pain, no nausea or vomiting Skin: no rash Neurological: no syncope, no dizziness, no focal weakness or deficit Exam Blood pressure 112/72, pulse 53, temperature 97.1 F (36.2 C), temperature source Temporal, resp. rate 16, height 1.651 m (5' 5 ), weight 73.5 kg (162 lb), SpO2 98 %. Constitutional: well nourished, well developed, in no acute distress Eyes: sclera and conjunctiva clear ENT: unremarkable appearance of external ears and nose Neck: supple, no JVD Respiratory: breath sounds clear bilaterally Cardiovascular: bradycardic rate, regular rhythm Neurologic: no focal deficits noted Psychiatric: pleasant mood, does not appear anxious, no signs of depression Assessment & Plan Anxiety disorder, stable with SSRI treatment She wants to continue current medication, which I refilled today We will continue to discuss in a year the possible discontinuation of celexa documented in this encounter Assessments Diagnosis Anxiety- Primary Anxiety state, unspecified Diagnosis Chronic nonintractable headache, unspecified headache type Episode of visual disturbance Unspecified visual disturbance Diagnosis Anxiety Anxiety state, unspecified Diagnosis Anxiety- Primary Anxiety state, unspecified Summary Purpose Family History No Family History Records FoundNo Family History Records FoundNo Family History Records FoundNo Family History Records Found Advance Directives No Advanced Directives Records FoundNo Advanced Directives Records FoundNo Advanced Directives Records FoundNo Advanced Directives Records Found Reason for Referral Status Reason Specialty Diagnoses / Procedures Re ferred By Contact Referred To Contact Closed Diagnoses Chronic nonintractable headache, unspecified headache type Episode of visual disturbance Procedures MRI BRAIN WITHOUT CONTRAST [facility] BRAIN Behzad Dumas DO [address] [place] [id number] Additional Source Comments Reason for Visit (unrecogniz ed section and content) Reason Comments Medication Refill Reason Comments Anxiety Pt denies any issues . Denies any side effects on Celexa. Feels it works good. Status Reason Specialty Diagnoses / Procedures Re ferred By Contact Referred To Contact Closed Diagnoses Chronic nonintractable headache, unspecified headache type Episode of visual disturbance Procedures MRI BRAIN WITHOUT CONTRAST VA MRI BRAIN Behzad Dumas [address] [address] INFORMATION SOURCE (unrecogn ized section and content) DATE CREATED AUTHOR 02/07/2020 [facility] DATE CREATED AUTHOR AUTHOR'S ORGANIZ ATION 10/31/2021 [facility] ([place]) DATE CREATED AUTHOR AUTHOR'S ORGANIZ ATION 06/19/2022 [facility] DATE CREATED AUTHOR AUTHOR'S ORGANIZ ATION 11/18/2023 [facility] EPIC FOR RECORDS PERTAINING TO PATIENTS WHO ARE OR HAVE BEEN ENROLLED IN A CHEMICAL DEPENDENCY/SUBSTANCEABUSE PROGRAM, SOME INFORMATION MAY BE OMITTED. This clinical summary was aggregated from multiple sources. Caution should be exercised in using it in the provision of clinical care. This summary normalizes information from multiple sources, and as a consequence, information in this document may materially change the coding, format and clinical context of patient data. In addition, data may be omitted in some cases. CLINICAL DECISIONS SHOULD BE BASED ON THE PRIMARY CLINICAL RECORDS. [email or web address] provides no warranty or guarantee of the accuracy or completeness of information in this document.
[2023-12-03 11:53] LABS: Basophils Percent Auto 0.3 % (0.2-2.0); Eosinophils Absolute Auto 0.2 10^3/uL (0.0-0.7); Eosinophils Percent Auto 2.2 % (0.9-7.0); Hematocrit 32.1 % (36.0-48.0); Hemoglobin 10.7 g/dL (12.0-16.0); Immature Granulocytes Abs Auto 0.17 10^3/uL (0.00-0.03); Immature Granulocytes Pct Auto 1.8 % (0.0-0.5); Lymphocytes Absolute Auto 1.3 10^3/uL (1.2-3.8); Lymphocytes Percent Auto 14.5 % (20.5-60.0); Mean Corpuscular HGB Conc 33.3 g/dL (29.9-35.2); Mean Corpuscular Hemoglobin 29.1 pg (26.7-34.0); Mean Corpuscular Volume 87.2 fL (81.0-99.0); Mean Platelet Volume 9.6 fL (9.5-13.5); Monocytes Absolute Auto 0.5 10^3/uL (0.3-0.8); Monocytes Percent Auto 5.4 % (1.7-12.0); Neutrophils Percent Auto 75.8 % (43.0-75.0); Platelet Count 248 10^3/uL (150-450); Red Blood Count 3.68 10^6/uL (4.20-5.40); Red Cell Distribution Width 12.1 % (11.0-15.0); White Blood Count 9.2 10^3/uL (4.0-11.0)
[2023-12-03 12:17] LABS: Glucose 1 Hour 132 mg/dL
== END 2023-12-03 10:21 | disposition home or self-care (01) ==
PROVIDERS: Visit Provider Physician Assistant
DX: Z34.92 Encounter for supervision of normal pregnancy, unspecified, second trimester (principal)
CPT/HCPCS: 36415; 82950; 85025

== ENCOUNTER 2024-01-09 13:00 | Outpatient (OUT) | payer BC, SELFPAY ==
--- NOTE | 2024-01-09 13:03 | US_ITS ---
[address] [address] Patient Name: KAMRON ADAM MRN: [id number] date: 1995 Sex: F Assigned Patient Location: [facility] Current Patient Location: [facility] Accession/Order Number: [id number] Exam Date: 01/09/2024 13:06 Report Date: 01/09/2024 13:49 At the request of: AIDEE CORBIN Procedure: US OB growth EXAMINATION: US OB growth HISTORY: SGA COMPARISON: No relevant comparison available. FINDINGS: Heart Rate: 138.0 bpm Amniotic Fluid Volume: 16.3 cm Number: 1.0 Position: CEPHALIC Maximum Vertical Pocket: 6.2 cm cm 4.5 cm cm 2.6 cm cm 3.1 cm cm BIOMETRY: BPD: 8.8 cm cm; 35 weeks 3 days; 90% HC: 31.0 cmcm; 34 weeks 4 days, 39% AC: 29.7 cm cm; 33 weeks 4 days, 55% FL: 6.5 cm cm; 33 weeks 4 days; 40.4 % % EFW: 2300.6 grams, 5 lbs. 1 oz., 52% FL/AC: 22.0 FL/BPD: 74.4 HC/AC: 1.0 GESTATIONAL AGE: Age by EDC: 33 weeks 4 days LUKAS by EDC: 02/23/2024 Age by US: 34 weeks 2 days LUKAS by US: 02/18/2024 US/US OB growth IMPRESSION: Normal interval growth Electronically authenticated by: ITZ CHATTERJEE Date: 01/09/2024 13:49
== END 2024-01-09 13:01 | disposition home or self-care (01) ==
LOC: NOMS 13:00
PROVIDERS: Visit Provider Obstetrics & Gynecology
DX: O26.843 Uterine size-date discrepancy, third trimester (principal); Z3A.33 33 weeks gestation of pregnancy
CPT/HCPCS: 76816

== ENCOUNTER 2024-01-19 14:35 | Outpatient (OUT) | payer BC, SELFPAY ==
--- OUTSIDE RECORDS SUMMARY | 2024-01-19 14:55 | XMS_ITS | CCD ---
Author Name Unknown Address [address]: [address] off the [address] [place] [address] Organization [facility] Care Team Providers Care Hospice Plan Administrator Name Role Phone Behzad Dumas Primary Care Provider MARKER, ROBBY Admitting Unavailable MARKER, ROBBY Attending Unavailable MISC, DOCTOR Consulting Unavailable MARKER, ROBBY Consulting Unavailable KIRSCHMANN, ALCON Consulting Unavailable JOVITA, DAMIAN Consulting Unavailable SELF, SELF Referring Unavailable LUZMA, BEHZAD Attending Unavailable BEHZAD DUMAS Primary Care Unavailable PAULINA PRATER Attending Unavailable EVETTE, AIDEE Attending Unavailable EVETTE, AIDEE Attending Unavailable PAULINA PRATER Attending Unavailable EVETTE, AIDEE Attending Unavailable Tasia Bell MD Primary Care Provider Tasia Werner Primary Care Provider Medications Current Medications Medication Drug Class(es) Dates Sig (Normalized) Sig (Original) citalopram 20 mg oral tablet (16 sources) Serotonin Reuptake Inhibitor Start: 10-10-2023 End: 01-10-2024 take 1 tablet by mouth in the morning citalopram (CeleXA) 20 mg tablet Indications: Anxiety and depression TAKE 1 & 1/2 (ONE & ONE-HALF) TABLETS BY MOUTH IN THE MORNING 135 tablet 0 01/10/2024 Active Start: 08-06-2019 End: 09-11-2019 take 1 tablet by mouth once daily citalopram 20 MG Tab tablet Indications: Anxiety Take 1 tablet by mouth daily. 90 tablet 3 09/11/2019 Active Start: 06-12-2018 End: 08-04-2019 take 1 tablet by mouth once daily citalopram (CELEXA) 20 MG Tab tablet Indications: Anxiety Take 1 tablet by mouth daily. 30 tablet 0 06/28/2019 08/04/2019 Discontinued (Reorder) Desiccated Beef Liver powder (2 sources) Desiccated Beef Liver powder Problems Active Problems Problem Classification Problem Date Documented Date Episodic/Chronic Anxiety disorders (5 sources) Anxiety; Translations: [Mixed anxiety and depressive disorder] Onset: 10-01-2020 01-10-2024 Chronic Blindness and vision defects (1 source) Visual disturbance; Translations: [Episode of visual disturbance] Episodic External cause codes: Cut/carvalho (1 source) Contact with sharp glass, initial encounter; Translations: [CONTACT W/SHARP GLASS INITIAL ENC] Onset: 02-07-2020 Headache; including migraine (1 source) Ophthalmic migraine; Translations: [Migraine with aura, not intractable, without status migrainosus] Onset: 10-01-2020 05-06-2022 Chronic Headache; including migraine (1 source) Headache; Translations: [...] NO DMG NL INT] Onset: 02-05-2020 Episodic Other ear and sense organ disorders (1 source) Hearing loss in left ear; Translations: [Unspecified hearing loss, left ear] Onset: 05-07-2021 05-07-2021 Chronic Other endocrine disorders (1 source) Polycystic ovary syndrome; Translations: [Polycystic ovarian syndrome] Onset: 05-17-2022 05-17-2022 Chronic Other and delivery including normal (2 sources) Third trimester ; Translations: [Encounter for supervision of normal , unspecified, third trimester] 01-05-2024 Episodic Short gestation; low weight; and growth retardation (2 sources) Lybki-nsk-eqlob baby; Translations: [Sutter small for gestational age, unspecified weight] 01-05-2024 Episodic Past or Other Problems Problem Classification Problem Date Documented Da te Episodic/Chronic Epilepsy; convulsions (1 source) Neurological finding; Translations: [Unspecified convulsions] Onset: 11-03-2022 11-03-2022 Episodic Mood disorders (1 source) Mood disorders Onset: 07-06-2023 07-06-2023 Other ear and sense organ disorders (1 source) Cholesteatoma; Translations: [Unspecified cholesteatoma, left ear] Onset: 06-15-2022 06-15-2022 Episodic Otitis media and related conditions (1 source) Chronic otitis media; Translations: [Otitis media, unspecified, unspecified ear] Onset: 05-07-2021 05-07-2021 Episodic Unclassified (1 source) Onset: 05-10-2023 05-10-2023 Results Test Name Value Interpretation Reference Range Facility Urinalysis macro (dipstick) panel (U)on 01-05-2024 Bilirubin, UA Negative Negative - 4(70) +++ mg/dL [facility] Blood, UA Negative Negative - 50 Santiago/mcL [facility] Clarity, UA Clear [facility] re Color, UA Yellow [facility] e Glucose, UA Negative Negative - 1999(110) ++++ mg/dL [facility] Interpretation and review of laboratory results Normal [facility] Ketones, UA Negative Negative - 160(16) ++++ mg/dL [facility] Leukocytes, UA Negative Negative - 500+++ Peri/mcL [facility] Nitrite, UA Negative Negative - Positive [facility] pH, UA 6.0 5 - 9 [facility] e Protein, UA Negative Negative - 2000(20) ++++ mg/dL [facility] Spec Grav, UA 1.020 1 - 1.03 [facility] Urobilinogen, UA 0.2 0.2 - 12 mg/dL [facility]P BONES WO IVCONon CT TEMP BONES WO IVCON * * *Final Report* * * DATE OF EXAM: Jun 17 2022 6:34PM [facility] 0512 - CT TEMP BONES [...] Skull Base: No evidence of bony destruction. Licensing Director (topogram) images: No additional findings. IMPRESSION: NORMAL STUDY. Boring And Filling Machine Operator: KAITLYN Transcribe Date/Time: Jun 17 2022 6:45P Dictated by : GREYSON TSAI DO This examination was interpreted and the report reviewed and electronically signed by: MEGAN MARX MD on Jun 17 2022 6:58PM EST [id number] Normal [facility] ED NOTEon 06-17-2022 ED NOTE HNO ID: [id number] Author: Harika Khoury RN Service: Emergency Medicine Author Type: Registered Nurse Type: ED Notes Filed: 06/17/2022 7:34 PM Note Text: Discharge instructions provided to patient and family. Verbalized understanding. Alert and oriented. Ambulated with steady gait out of ED with family. Normal [facility] ED NOTE HNO ID: [id number] Author: Rubio Platt RN Service: Nursing Author [...] to assess and monitor the patient Normal [facility] ED PROV NOTEon 06-17-2022 ED PROV NOTE HNO ID: [id number] Author: Cuong Lopez MD Service: Emergency Medicine Author Type: Physician Type: ED Provider Notes Filed: 06/18/2022 1:20 AM Note Text: ED Provider Note Patient Name: Candice Butcher : 1995 SERVICE DATE: 06/17/22 History [...] she saw an an ENT PA at [facility] who diagnosed her with a cholesteatoma and [...] with recent bouts of ear pain/otitis, primary Web Marketing Strategist diagnosed likely cholesteatoma, recommended CT, patient concerned re: invasion/spread/mor (more content not included)... Normal [facility] CONSULTon 06-04-2022 CONSULT HNO ID: [id number] Author: Carolann Pruitt MD Service: Otolaryngology Author Type: Resident Type: Consults Filed: 06/04/2022 12:33 AM Note Text: OTOLARYNGOLOGY HEAD AND NECK SURGERY CONSULT NOTE Patient: Candice Butcher : 1995 Date of Service: June 04, 2022 ASSESSMENT AND PLAN: Candice Butcher is a 26 year old female [...] - Patient has follow up scheduled with [facility] on 06/15 - I can request as well but she states she will follow up with O[facility] ENT - Reassured patient - Please page Head and Neck Surgery with any questions or concerns Carolann Pruitt MD PGY-2 Otolaryngology- Head and Neck Surgery Pager: [phone] For all concerns from 5pm to 7am or on the weekends please page [phone]. - - - - - - - [...] PGY-2 Otolaryngology- Head and Neck Surgery Pager: [phone] For all concerns from 5pm to 7am or on the weekends please page [phone]. Normal [facility] ED NOTEon 06-04-2022 ED NOTE HNO ID: [id number] Author: Kennedi Brown RN Service: Emergency Medicine Author Type: Registered Nurse Type: ED Notes Filed: 06/04/2022 12:43 AM Note Text: This RN to the room to provide pt with DC/Follow up/Care instructions. Pt verbalizes understanding. Pt ambulates with steady gait, moves all extremities independently, chest rise and fall equal, resps easy unlabored, no signs of distress noted. Normal [facility] ED NOTE HNO ID: [id number] Author: Kennedi Brown RN Service: Emergency Medicine Author Type: Registered Nurse Type: ED Notes Filed: 06/04/2022 12:06 AM Note Text: ENT and Attending at Bedside Normal [facility] ED PROV NOTEon 06-04-2022 ED PROV NOTE HNO ID: [id number] Author: Tyler Brock MD Service: Emergency Medicine Author Type: Physician Type: ED Provider Notes Filed: 06/04/2022 1:29 AM Note Text: ED Provider Note Patient Name: Candice Butcher : 1995 SERVICE DATE: 06/03/22 History [...] rash. Neurological: Negative for tremors and headaches. Psychiatric/Behaviora l: Negative for confusion. The patient is not nervous/anxious. Physical Exam Vitals [06/03/22 1912] BP Pulse Temp Temp src Resp SpO2 [...] 06/15 and additionally arranged ENT appointment at [facility]. MDM / Disposition / Plan 26yo F with Hx of chronic otitis media presented with ear pain and discharge, was told by urgent clinic care [facility] yesterday to be evaluated by ENT at ED for possible cyst. Seen by ENT energy operations vice president at ED, and thought it is stable [...] 0020 At (more content not included)... Normal [facility] ED NOTEon 06-03-2022 ED NOTE HNO ID: [id number] Author: Janell Murry, CT Service: Emergency Medicine Author Type: Clinical Immunopathologist Type: ED Notes Filed: 06/03/2022 7:15 PM Note Text: Taking pt vs. Normal [facility] MRI BRAIN WITHOUT CONTRASTon 08-08-2020 IMPRESSION: No intracranial abnormality. Normal MRI of the brain without contrast. [employer] EXAMINATION: MRI OF THE BRAIN WITHOUT CONTRAST 08/08/2020 1:36 pm TECHNIQUE: Multiplanar multisequence MRI of the brain was performed without the administration of intravenous contrast. COMPARISON: None. HISTORY: HISTORY: Past year having blurred vision and ENGLE's getting worse recently. No trauma; FINDINGS: INTRACRANIAL STRUCTURES/VENTRICLES : No acute infarction. No mass effect or [...] The soft tissues demonstrate no acute abnormality. [employer] User, Interfaces - 08/08/2020 2:09 PM EDT EXAMINATION: MRI OF THE BRAIN WITHOUT CONTRAST 08/08/2020 1:36 pm TECHNIQUE: Multiplanar multisequence MRI of the brain was performed without the administration of intravenous contrast. COMPARISON: None. HISTORY: HISTORY: Past year having blurred vision and ENGLE's getting worse recently. No trauma; FINDINGS: INTRACRANIAL STRUCTURES/VENTRICLES : No acute infarction. No mass effect or [...] Normal MRI of the brain without contrast. [employer] XR TOES RT MIN 2 Von 020 XR TOES RT MIN 2 V [...] oblique views. 2. No dislocation. Normal [facility] Vital Signs Date Time Vital Sign Value Performing Clinician Faci lizetty 01-05-2024 11:40-0500 Body weight 93.8 kg Aidee Evette DO Work Phone: [facility] 01-05-2024 11:40-0500 Diastolic blood pressure 70 mm[Hg] Aidee Evette DO Work Phone: [facility] 01-05-2024 11:40-0500 Systolic blood pressure 106 mm[Hg] Aidee Evette DO Work Phone: [facility] 09-11-2019 12:49-0400 BMI (Body Mass Index) 26.96 kg/m2 Behzad Cerrillos [facility] 09-11-2019 12:49-0400 Body Temperature 97.11 [degF] Behzad [facility] 09-11-2019 12:49-0400 Body weight 73.48 kg [facility] [employer] 09-11-2019 12:49-0400 BP Diastolic 72 mm[Hg] [facility] 09-11-2019 12:49-0400 BP Systolic 112 mm[Hg] Behzad [facility] 09-11-2019 12:49-0400 Height 165.1 cm [facility] [employer] 09-11-2019 12:49-0400 Pulse (Heart Rate) 53 /min [facility] [employer] 09-11-2019 12:49-0400 Pulse Oximetry 98 % Behzad Cerrillos [employer] 09-11-2019 12:49-0400 Respiratory Rate 16 /[facility] [employer] Encounters Encounter Date Encounter Type Care Provider Facility Start: 01-10-2024 Refill Tasia harry STOCK WETTER-HAIR BOILER Work Phone: [facility] Comment on above: Anxiety and depressi on Start: 01-05-2024 End: 01-05-2024 ambulatory AIDEE EVETTE Not Available Start: 01-05-2024 End: 01-05-2024 flow sheet Aidee Evette DO Work Phone: [facility] Comment on above: Third trimester preg lona; Small for gestational age Start: 12-19-2023 End: 12-19-2023 ambulatory AIDEE EVETTE Not Available Start: 12-05-2023 End: 12-05-2023 ambulatory PAULINA JOSI Not Available Start: 11-17-2023 End: 11-17-2023 ambulatory AIDEE EVETTE Not Available Start: 10-18-2023 End: 10-18-2023 ambulatory PAULINA JOSI Not Available Start: 10-29-[address] [facility] ([place]) Start: 08-08-2020 End: 08-08-2020 Subsequent hospital visit by physician Behzad Dumas Work Phone: [facility] Comment on above: Arrived Start: 02-05-2020 End: 02-06-2020 Patient encounter procedure ROBBY MARKER Facility:[facility] Start: 09-11-2019 End: 09-11-2019 Letter encounter Provider [facility] Start: 09-11-2019 End: 09-11-2019 Office outpatient visit 15 minutes Behzad Dumas Work Phone: [facility] Comment on above: Anxiety (Primary Dx) Start: 08-04-2019 End: 08-04-2019 Refill Behzad Dumas Work Phone: [facility] Comment on above: Anxiety (Primary Dx) Start: 07-24-2019 End: 07-24-2019 Letter encounter Behzad Dumas Work Phone: [facility] Start: 06-28-2019 End: 06-28-2019 Refill Behzad Dumas Work Phone: [facility] Comment on above: Anxiety Start: 06-20-2019 End: 06-20-2019 Refill Behzad Dumas Work Phone: [facility] Start: 06-14-2019 End: 06-14-2019 Letter encounter Behzad Dumas Work Phone: [facility] Start: 06-14-2019 End: 06-14-2019 Refill Behzad Dumas Work Phone: [facility] Procedures Date Procedure Procedure Detail Performing Clinician Start: 01-05-2024 Urnls dip stick/tabl et rgnt non-auto w/o micrscp Aidee Evette DO Work Phone: Start: 07-06-2023 Adult depression scr eening assessment Tasia Bell APRN-HAIR BOILER Work Phone: Start: 05-17-2022 Microscopic observat ion [Identifier] in Cervix by Cyto stain Tasia Bell APRN-HAIR BOILER Work Phone: Start: 08-08-2020 MRI of brain and bra in stem Behzad Dumas Work Phone: Plan of Treatment Date Care Activity Detail Author Start: 05-17-2025 Screening for malign ant neoplasm of cervix Pap Smear [facility] Start: 07-06-2024 Adult BMI Screening Adult BMI Screen ing [facility] Start: 07-06-2024 Depression Screening Depression Scre ening [facility] Start: 07-06-2024 Tobacco Screening Tobacco Screening [facility] Start: 03-28-2024 End: 03-28-2024 Clinical Support [facility] Start: 01-19-2024 End: 01-19-2024 Patient encounter procedure 01/19/2024 2:00 PM EST Routine [facility] [address] [address] Paulina Prater PA [address] [place], [place] [id number] [facility] Start: 01-09-2024 End: 01-09-2024 Professional / ancillary services management 01/09/2024 1:00 PM EST Ancillary Procedure [facility] [address] [address] [facility] Start: 01-05-2024 End: 01-05-2025 US for US OB SCAN FOR GROWTH Imaging Routine Small for gestational age Expected: 01/05/2024 (Approximate), Expires: 01/05/2025 [facility] Work Phone: Comment on above: Expected: 01/05/2024 (Approximate), Expires: 01/05/2025 Start: 11-03-2023 Adult BMI Follow Up Plan Adult BMI Follow Up Plan [facility] Start: 07-29-2023 Influenza vaccination Influenza Vacc ine [facility] Start: 07-29-2020 Influenza vaccination INFLUENZA VACC INE (#1) [facility] Start: 09-11-2019 End: 09-11-2019 Office Visit 09/11/2019 Office Visit Family Medicine/Radhas Behzad Dumas DO [address] [place] [address] [phone] Arrived [facility] Comment on above: Arrived Start: 07-29-2019 Influenza vaccination INFLUENZA VACC INE (#1) [facility] Start: 07-18-2019 End: 07-18-2019 Office Visit 07/18/2019 Office Visit Family Medicine/Behzad Ruth, DO [address] [address] [phone] [facility] Start: 2017 Screening for malign ant neoplasm of cervix [facility] Start: 2015 DTaP,Tdap and Td Vac cines (1 - Tdap) DTaP,Tdap and Td Vaccines (1 - Tdap) [facility] Start: 2015 Third diphtheria, te tanus and acellular pertussis (DTaP) vaccination TDAP (ADULT) [facility] Start: 2014 Tetanus vaccination TETANUS [facility] Start: 2012 Screening for Chlamy axel trachomatis CHLAMYDIA SCREEN [facility] Start: 2011 Vaccination for brando n papillomavirus HPV VACCINE ADOL (1 - Female 3-dose series) [facility] Start: 2009 HIV screening HIV SCREENING DISCUSSION [facility] Start: 2007 Vaccination for brando n papillomavirus HPV VACCINE ADOL (1 - 2-dose series) [facility] Start: 1996 GONORRHEA SCREEN GONORRHEA SCREEN [facility] Payers Date Payer Category Payer Unknown [id number] 2023 Unknown BCBS BCBS xxxxxx [id number] 2023-Present [phone] [address] [place] [address] [id number] 2022 Private Health Insurance ZENIA KNUTSON [id number] 2022-Present [phone] [address] [place] [address] [id number] 2016 Unknown [employer] [place] xxxxxxxxxxxx 2016-Present [id number] 2016 Unknown [employer] [place] [id number] 2016-Present [id number] 1996 Unknown [id number] 1995 Unknown [id number] 1996 Unknown [id number] 1996 Unknown [id number] 1995 Unknown [id number] 1995 Unknown [id number] 1995 Unknown [id number] 1959 Unknown [id number] Social History Date Type Detail Facility Start: 06-12-2018 End: 09-22-2022 Tobacco smoking status [facility] Never smoker [facility] Start: 01-05-2017 Alcohol Comment rarely [facility] Start: 1995 Sex Assigned At Not on file [facility] Start: 06-12-2018 End: 01-08-2021 Alcohol intake Yes [facility] Start: 08-05-2020 End: 09-22-2022 Tobacco use and exposure Never used [facility] Start: 08-05-2020 Alcohol intake Current drinke r of alcohol (finding) [facility] Exposure to SARS-CoV -2 (event) Not sure [facility] Tobacco smoking stat us NHIS Tobacco smoking consumption unknown [facility] Start: 06-02-2023 [facility] Start: 07-06-2023 Alcohol intake Ex-drinker (finding) [facility] Start: 01-08-2021 End: 07-06-2023 History of Social function [facility] Adolescent depressio n screening assessment 0 [facility] History of Present illness Narrative 01-05-2024 Aidee Alas DO - 01/05/2024 11:30 AM EST Note Date & Type Note Facility 01-05-2024 History of Presen t illness Narrative Reason for Appointment: Patient ID: Candice Hodge is a 28 y.o. female who presents for Routine Visit Patient presents today for Return OB appointment. Current Medications: has a current medication list which includes the following prescription(s): citalopram and desiccated beef liver. Medical History: Active Ambulatory Problems Diagnosis Date Noted No Active Ambulatory Problems Resolved Ambulatory Problems Diagnosis Date Noted No Resolved Ambulatory Problems No Additional Past Medical History No family history on file. Social History Tobacco Use Smoking status: Not on file Smokeless tobacco: Not on file Substance Use Topics Alcohol use: Not on file Drug use: Not on file History reviewed. No pertinent surgical history. No Known Allergies Review of Systems: Review of Systems Constitutional: Negative. HENT: Negative. Eyes: Negative. Respiratory: Negative. Cardiovascular: Negative. Gastrointestinal: Negative. Genitourinary: Negative. Musculoskeletal: Negative. Skin: Negative. Neurological: Negative. All other systems reviewed and are negative. Hematological: Negative. Endocrine: Negative. Allergic/Immunologic: Negative. Objective Physical Exam Constitutional: Appearance: Normal appearance. She is well-developed. Cardiovascular: Rate and Rhythm: Normal rate and regular rhythm. Pulmonary: Effort: Pulmonary effort is normal. Breath sounds: Normal breath sounds. Abdominal: General: Bowel sounds are normal. There is no distension. Palpations: Abdomen is soft. Tenderness: There is no abdominal tenderness. There is no guarding or rebound. Musculoskeletal: General: No swelling. Normal range of motion. Right lower leg: No edema. Left lower leg: No edema. Neurological: Mental Status: She is alert and oriented to person, place, and time. Skin: General: Skin is warm and dry. Psychiatric: Mood and Affect: Mood normal. Behavior: Behavior normal. Vitals and nursing note reviewed. Exam conducted with a field operations supervisor present. Vitals: There is no height or weight on file to calculate BMI. BP: 106/70 Patient's last menstrual period was 05/07/2023. Assessment/Plan Encounter Diagnoses Name Primary? Third trimester Small for gestational age Patient presents today for a routine obstetrics appointment. Patient is currently 33w4d . Patient states she is doing well but has complaints of being tired due to current . Patient has verbalizes frequent movement. labor precautions was discussed/given and patient was instructed to perform kick counts three times a day. Follow Up: Patient is to return to office in 2 week for routine OB appointment. Documented by Aidee Alas DO on behalf of: Aidee Alas DO documented in this encounter [facility] Healthcare Progress note 06-17-2022 Note Date & Type Note Facility 06-17-2022 Note HNO ID: [id number] Author: Sage Marx Jr., CT Service: Radiology Author Type: Immunopathologist Type: Progress Notes Filed: 06/17/2022 6:37 PM Note Text: Radiology Service Progress Note PATIENT NAME: Candice Butcher DATE OF SERVICE: June 17, 2022 [...] Horner Jr June 17, 2022 6:36 PM [facility] Evaluation note Note Date & Type Note Facility Evaluation note Diagnosis Third trimester state, incidental Small for gestational age [id number] without mention of malnutrition, unspecified (weight) documented in this encounter [facility] Healthcare Evaluation note Note Date & Type Note Facility Evaluation note Diagnosis Anxiety and depression documented in this encounter [facility] Instructions Note Date & Type Note Facility Instructions Not on filedocumented in this en counter [facility] History of Present Illness * Behzad Dumas DO - 09/11/2019 1:00 PM EDT HPI She [...] visual disturbance Procedures MRI BRAIN WITHOUT CONTRAST ND MRI BRAIN Behzad Dumas DO [address] [address] Additional Source Comments Reason for Visit (unrecogniz ed section and content) Reason Comments Medication Refill Reason Comments Anxiety Pt denies any issues . Denies any side effects on Celexa. Feels it works good. Status Reason Specialty Diagnoses / Procedures Re ferred By Contact Referred To Contact Closed Diagnoses Chronic nonintractable headache, unspecified headache type Episode of visual disturbance Procedures MRI BRAIN WITHOUT CONTRAST ND MRI BRAIN Behzad Dumas DO [address] [address] Reason Comments Routine Visit Reason Comments Med Refill INFORMATION SOURCE (unrecogn ized section and content) DATE CREATED AUTHOR 02/07/2020 [facility] DATE CREATED AUTHOR AUTHOR'S ORGANIZ ATION 10/31/2021 [facility] ([place]) DATE CREATED AUTHOR AUTHOR'S ORGANIZ ATION 06/19/2022 [facility] DATE CREATED AUTHOR AUTHOR'S ORGANIZ ATION 01/06/2024 [facility] dical Specialists EPIC Care Teams (unrecognized sec tion and content) Hospice Plan Administrator Relationship Specialty Start Date End Date Tasia Bell MD [facility] [address] [place] [address] PCP - General Family Medicine 07/22/23 Hospice Plan Administrator Relationship Specialty Start Date End Date Tasia Bell APRN-HAIR BOILER PCP - General Nurse Practitioner 06/20/23 FOR RECORDS PERTAINING TO PATIENTS WHO ARE [...] BE BASED ON THE PRIMARY CLINICAL RECORDS. [facility]. provides no warranty or guarantee of the accuracy or completeness of information in this document.
[2024-01-19 14:58] LABS: Basophils Percent Auto 0.2 % (0.2-2.0); Eosinophils Absolute Auto 0.2 10^3/uL (0.0-0.7); Eosinophils Percent Auto 1.5 % (0.9-7.0); Hematocrit 32.3 % (36.0-48.0); Hemoglobin 10.5 g/dL (12.0-16.0); Immature Granulocytes Abs Auto 0.18 10^3/uL (0.00-0.03); Immature Granulocytes Pct Auto 1.8 % (0.0-0.5); Lymphocytes Absolute Auto 1.3 10^3/uL (1.2-3.8); Lymphocytes Percent Auto 12.9 % (20.5-60.0); Mean Corpuscular HGB Conc 32.5 g/dL (29.9-35.2); Mean Corpuscular Hemoglobin 27.6 pg (26.7-34.0); Mean Corpuscular Volume 84.8 fL (81.0-99.0); Mean Platelet Volume 9.6 fL (9.5-13.5); Monocytes Absolute Auto 0.8 10^3/uL (0.3-0.8); Monocytes Percent Auto 7.6 % (1.7-12.0); Neutrophils Absolute Auto 7.5 10^3/uL (1.4-6.5); Platelet Count 289 10^3/uL (150-450); Red Blood Count 3.81 10^6/uL (4.20-5.40); Red Cell Distribution Width 12.5 % (11.0-15.0); White Blood Count 9.9 10^3/uL (4.0-11.0)
== END 2024-01-19 14:36 | disposition home or self-care (01) ==
LOC: LAB 14:37
PROVIDERS: Visit Provider Physician Assistant
DX: Z34.93 Encounter for supervision of normal pregnancy, unspecified, third trimester (principal); D64.9 Anemia, unspecified
CPT/HCPCS: 36415; 85025

== ENCOUNTER 2024-01-26 19:07 | Outpatient (REF) | payer BC, SELFPAY ==
--- OUTSIDE RECORDS SUMMARY | 2024-01-26 19:30 | XMS_ITS | CCD ---
Author Name Unknown Address [address] [place] [address] Organization [facility] Care Team Providers Care Marine Pipefitter Name Role Phone Behzad Dumas Primary Care Provider [phone] MARKER, ROBBY Admitting Unavailable MARKER, ROBBY Attending [...] low weight; and growth retardation (2 sources) Vaqet-jks-mymwn baby; Translations: [[place] small for gestational age, unspecified weight] 01-05-2024 [...] UA Negative Negative - 4(70) +++ mg/dL [facility] Blood, UA Negative Negative - 50 Santiago/mcL [facility] Clarity, UA Clear [facility] Healthnm re Color, UA Yellow [facility] e Glucose, UA Negative Negative - 1999(110) ++++ mg/dL [facility] Interpretation and review of laboratory results Normal [facility] Ketones, UA Negative Negative - 160(16) ++++ mg/dL [facility] Leukocytes, UA Negative Negative - 500+++ Peri/mcL [facility] Nitrite, UA Negative Negative - Positive [facility] pH, UA 6.0 5 - 9 [facility] e Protein, UA Negative Negative - 2000(20) ++++ mg/dL [facility] Spec Grav, UA 1.020 1 - 1.03 [facility] Urobilinogen, UA 0.2 0.2 - 12 mg/dL [facility]P BONES WO IVCONon CT TEMP BONES WO IVCON * * *Final Report* * * DATE OF EXAM: Jun 17 2022 6:34PM [facility] 0512 - CT TEMP BONES [...] Skull Base: No evidence of bony destruction. Women'S Studies Professor (topogram) images: No additional findings. IMPRESSION: NORMAL STUDY. Congressional Assistant: KAITLYN Transcribe Date/Time: Jun 17 2022 6:45P Dictated by : GREYSON TSAI DO This examination was interpreted and the report reviewed and electronically signed by: MEGAN MARX MD on Jun 17 2022 6:58PM EST [id number] Normal [facility] ED NOTEon 06-17-2022 ED NOTE HNO ID: [id number] Author: Harika Khoury RN Service: Emergency Medicine Author Type: Registered Nurse Type: ED Notes Filed: 06/17/2022 7:34 PM Note Text: Discharge instructions provided to patient and family. Verbalized understanding. Alert and oriented. Ambulated with steady gait out of ED with family. Normal [facility] ED NOTE HNO ID: [id number] Author: Rubio Platt RN Service: Nursing Author [...] to assess and monitor the patient Normal [facility] ED PROV NOTEon 06-17-2022 ED PROV NOTE HNO ID: [id number] Author: Cuong Lopez MD Service: Emergency Medicine [...] she saw an an ENT PA at [facility] who diagnosed her with a cholesteatoma and [...] with recent bouts of ear pain/otitis, primary Job Training Supervisor diagnosed likely cholesteatoma, recommended CT, patient concerned re: invasion/spread/mor (more content not included)... Normal [facility] CONSULTon 06-04-2022 CONSULT HNO ID: [id number] Author: Carolann Pruitt MD Service: Otolaryngology Author [...] PGY-2 Otolaryngology- Head and Neck Surgery Pager: [phone] For all concerns from 5pm to 7am or on the weekends please page [phone]. - - - - - - - [...] PGY-2 Otolaryngology- Head and Neck Surgery Pager: [phone] For all concerns from 5pm to 7am or on the weekends please page [phone]. Normal [facility] ED NOTEon 06-04-2022 ED NOTE HNO ID: [id number] Author: Kennedi Brown RN Service: Emergency Medicine Author Type: Registered Nurse Type: ED Notes Filed: 06/04/2022 12:43 AM Note Text: This RN to the room to provide pt with DC/Follow up/Care instructions. Pt verbalizes understanding. Pt ambulates with steady gait, moves all extremities independently, chest rise and fall equal, resps easy unlabored, no signs of distress noted. Normal [facility] ED NOTE HNO ID: [id number] Author: Kennedi Brown RN Service: Emergency Medicine Author Type: Registered Nurse Type: ED Notes Filed: 06/04/2022 12:06 AM Note Text: ENT and Attending at Bedside Normal [facility] ED PROV NOTEon 06-04-2022 ED PROV NOTE HNO ID: [id number] Author: Tyler Brock MD Service: Emergency Medicine [...] 06/15 and additionally arranged ENT appointment at [facility]. MDM / Disposition / Plan 26yo F with Hx of chronic otitis media presented with ear pain and discharge, was told by urgent clinic care [facility] yesterday to be evaluated by ENT at ED for possible cyst. Seen by ENT senior applications developer at ED, and thought it is stable [...] 0020 At (more content not included)... Normal [facility] ED NOTEon 06-03-2022 ED NOTE HNO ID: [id number] Author: Janell Murry, CT Service: Emergency Medicine Author Type: Clinical Hog Ribber Type: ED Notes Filed: 06/03/2022 7:15 PM Note Text: Taking pt vs. Normal [facility] MRI BRAIN WITHOUT CONTRASTon 08-08-2020 IMPRESSION: No intracranial abnormality. Normal MRI of the brain without contrast. [facility] EXAMINATION: MRI OF THE BRAIN WITHOUT CONTRAST [...] The soft tissues demonstrate no acute abnormality. [employer] User, Interfaces - 08/08/2020 2:09 PM EDT [...] MRI of the brain without contrast. [facility] XR TOES RT MIN 2 Von 020 [...] oblique views. 2. No dislocation. Normal [facility] Vital Signs Date Time Vital Sign Value Performing Clinician Faci lizetty 01-05-2024 11:40-0500 Body weight 93.8 kg Aidee Evette DO Work Phone: [facility] 01-05-2024 11:40-0500 Diastolic blood pressure 70 mm[Hg] Aidee Evette DO Work Phone: [facility] 01-05-2024 11:40-0500 Systolic blood pressure 106 mm[Hg] Aidee Evette DO Work Phone: [facility] 09-11-2019 12:49-0400 BMI (Body Mass Index) 26.96 kg/m2 Behzad [facility] 09-11-2019 12:49-0400 Body Temperature 97.11 [degF] Behzad [facility] 09-11-2019 12:49-0400 Body weight 73.48 kg [facility] 09-11-2019 12:49-0400 BP Diastolic 72 mm[Hg] [facility] 09-11-2019 12:49-0400 BP Systolic 112 mm[Hg] Behzad [facility] 09-11-2019 12:49-0400 Height 165.1 cm [facility] 09-11-2019 12:49-0400 Pulse (Heart Rate) 53 /min [facility] 09-11-2019 12:49-0400 Pulse Oximetry 98 % Behzad [facility] 09-11-2019 12:49-0400 Respiratory Rate 16 /min [facility] En[facility] Encounter Date Encounter Type Care Provider Facility Start: 01-10-2024 Refill Tasia harry CHROME PLATER-OVERNIGHT STOCKER Work Phone: [facility] Comment [...] Not Available Start: 10-29-2021 ambulatory SELF SELF [facility] Start: 08-08-2020 End: 08-08-2020 Subsequent hospital visit by physician Behzad Dumas Work Phone: [place] [employer] [facility] Comment on above: Arrived Start: 02-05-2020 End: 02-06-2020 Patient encounter procedure ROBBY MARKER Facility:[facility] Start: 09-11-2019 End: 09-11-2019 Letter encounter Provider [place] [facility] Start: 09-11-2019 End: 09-11-2019 Office outpatient visit 15 minutes Behzad Dumas Work Phone: [facility] Comment on above: Anxiety (Primary Dx) Start: 08-04-2019 End: 08-04-2019 Refill Behzad Dumas Work Phone: [facility] Comment on above: Anxiety (Primary Dx) Start: 07-24-2019 End: 07-24-2019 Letter encounter Behzad Dumas Work Phone: [facility] Start: 06-28-2019 End: 06-28-2019 Refill Behzad Dumas Work Phone: [facility] Comment on above: Anxiety Start: 06-20-2019 End: 06-20-2019 Refill Behzad Dumas Work Phone: [facility] Start: 06-14-2019 End: 06-14-2019 Letter encounter Behzad Dumas Work Phone: [facility] Start: 06-14-2019 End: 06-14-2019 Refill Behzad Dumas Work Phone: [facility] Procedures Date Procedure Procedure Detail Performing Clinician Start: 01-05-2024 Urnls dip stick/tabl et rgnt non-auto w/o micrscp Aidee Evette DO Work Phone: Start: 07-06-2023 Adult depression scr eening assessment Tasia Bell APRN-OVERNIGHT STOCKER Work Phone: Start: 05-17-2022 Microscopic observat ion [Identifier] in Cervix by Cyto stain Tasia Bell APRN-OVERNIGHT STOCKER Work Phone: Start: 08-08-2020 MRI of brain and bra in stem Behzad Dumas Work Phone: Plan of Treatment Date Care Activity Detail Author Start: 05-17-2025 Screening for malign ant neoplasm of cervix Pap Smear [facility] Start: 07-06-2024 Adult BMI Screening Adult BMI Screen ing [facility] Start: 07-06-2024 Depression Screening Depression Scre ening [facility] Start: 07-06-2024 Tobacco Screening Tobacco Screening [facility] Start: 03-28-2024 End: 03-28-2024 Clinical Support [facility] Start: 01-19-2024 End: 01-19-2024 Patient encounter procedure 01/19/2024 2:00 PM EST Routine [facility] [address] [address] Paulina Prater PA [address] [place], [place] [id number] [facility] Start: 01-09-2024 End: 01-09-2024 Professional / ancillary services management 01/09/2024 1:00 PM EST Ancillary Procedure [facility] [address] [place] [address] [facility] Start: 01-05-2024 End: 01-05-2025 US for US OB SCAN FOR GROWTH Imaging Routine Small for gestational age Expected: 01/05/2024 (Approximate), Expires: 01/05/2025 [facility] Work Phone: Comment on above: Expected: 01/05/2024 (Approximate), Expires: 01/05/2025 Start: 11-03-2023 Adult BMI Follow Up Plan Adult BMI Follow Up Plan [facility] Start: 07-29-2023 Influenza vaccination Influenza Vacc ine [facility] Start: 07-29-2020 Influenza vaccination INFLUENZA VACC INE (#1) [facility] Start: 09-11-2019 End: 09-11-2019 Office Visit 09/11/2019 Office Visit Family Medicine/Radhas Behzad Dumas DO [address] [place] [address] [phone] Arrived [facility] Comment on above: Arrived Start: 07-29-2019 Influenza vaccination INFLUENZA VACC INE (#1) [facility] Start: 07-18-2019 End: 07-18-2019 Office Visit 07/18/2019 Office Visit Family Medicine/Behzad Ruth, DO [address] [address] [phone] [facility] Start: 2017 Screening for malign ant neoplasm of cervix [facility] Start: 2015 DTaP,Tdap and Td Vac cines (1 - Tdap) DTaP,Tdap and Td Vaccines (1 - Tdap) [facility] Start: 2015 Third diphtheria, te tanus and acellular pertussis (DTaP) vaccination TDAP (ADULT) [facility] Start: 2014 Tetanus vaccination [facility] Start: 2012 Screening for Chlamy axel trachomatis CHLAMYDIA SCREEN [facility] Start: 2011 Vaccination for brando n papillomavirus HPV VACCINE ADOL (1 - Female 3-dose series) [facility] Start: 2009 HIV screening HIV SCREENING DISCUSSION [facility] Start: 2007 Vaccination for brando n papillomavirus HPV VACCINE ADOL (1 - 2-dose series) [facility] Start: 1996 GONORRHEA SCREEN GONORRHEA SCREEN [facility] Payers Date Payer Category Payer Unknown [id number] 2023 Unknown BCBS BCBS xxxxxx [id number] 2023-Present [phone] [address] [place] [address] [id number] 2022 Private Health Insurance ZENIA KNUTSON [id number] 2022-Present [phone] [address] [place] [address] [id number] 2016 Unknown [employer] M [place] [id number] 2016-Present [id number] 2016 Unknown [employer] M [place] [id number] 2016-Present [id number] 1996 Unknown [id number] 1996 Unknown [id number] 1996 Unknown [id number] 1996 Unknown [id number] 1996 Unknown [id number] 1996 Unknown [id number] 1996 Unknown [id number] 1959 Unknown [id number] Social History Date Type Detail Facility Start: 06-12-2018 End: 09-22-2022 Tobacco smoking status [facility] Never smoker [facility] Start: 01-05-2017 Alcohol Comment rarely [facility] Start: 1996 Sex Assigned At Not on file [facility] Start: 06-12-2018 End: 01-08-2021 Alcohol intake Yes [facility] Start: 08-05-2020 End: 09-22-2022 Tobacco use and exposure Never used [facility] Start: 08-05-2020 Alcohol intake Current drinke r of alcohol (finding) [facility] Exposure to SARS-CoV -2 (event) Not sure [facility] Tobacco smoking stat us NHIS Tobacco smoking consumption unknown [facility] Start: 06-02-2023 [facility] Start: 07-06-2023 Alcohol intake Ex-drinker (finding) [facility] Start: 01-08-2021 End: 07-06-2023 History of Social function [facility] Adolescent depressio n screening assessment 0 [facility] History of Present illness Narrative 01-05-2024 Aidee [...] nursing note reviewed. Exam conducted with a gum scoring machine operator present. Vitals: There is no height or [...] Aidee Alas DO documented in this encounter [facility] Healthcare Progress note 06-17-2022 Note Date & Type Note Facility 06-17-2022 Note HNO ID: [id number] Author: Sage Marx Jr., CT Service: Radiology Author Type: Hog Ribber Type: Progress Notes Filed: 06/17/2022 6:37 PM [...] Horner Jr June 17, 2022 6:36 PM [facility] Evaluation note Note Date & Type Note Facility Evaluation note Diagnosis Third trimester state, incidental Small for gestational age [id number]-[id number] without mention of malnutrition, unspecified (weight) documented in this encounter [facility] Healthcare Evaluation note Note Date & Type Note Facility Evaluation note Diagnosis Anxiety and depression documented in this encounter [facility] Instructions Note Date & Type Note Facility Instructions Not on filedocumented in this en counter [facility] History of Present Illness [...] visual disturbance Procedures MRI BRAIN WITHOUT CONTRAST [place] MRI BRAIN Behzad Dumas DO [address] [address] Additional Source Comments Reason for Visit (unrecogniz ed section and content) Reason Comments Medication Refill Reason Comments Anxiety Pt denies any issues . Denies any side effects on Celexa. Feels it works good. Status Reason Specialty Diagnoses / Procedures Re ferred By Contact Referred To Contact Closed Diagnoses Chronic nonintractable headache, unspecified headache type Episode of visual disturbance Procedures MRI BRAIN WITHOUT CONTRAST [place] MRI BRAIN Behzad Dumas DO [address] [address] Reason Comments Routine Visit Reason Comments Med Refill INFORMATION SOURCE (unrecogn ized section and content) DATE CREATED AUTHOR 02/07/2020 [facility] DATE CREATED AUTHOR AUTHOR'S ORGANIZ ATION 10/31/2021 [facility] DATE CREATED AUTHOR AUTHOR'S ORGANIZ ATION 06/19/2022 [facility] DATE CREATED AUTHOR AUTHOR'S ORGANIZ ATION 01/06/2024 [facility] dical Specialists EPIC Care Teams (unrecognized sec tion and content) Marine Pipefitter Relationship Specialty Start Date End Date Tasia Bell MD [facility] [address] [place] [address] PCP - General Family Medicine 07/22/23 Marine Pipefitter Relationship Specialty Start Date End Date Tasia Bell APRN-OVERNIGHT STOCKER PCP - General Nurse Practitioner 06/20/23 FOR [...] BE BASED ON THE PRIMARY CLINICAL RECORDS. [facility] [employer] [facility]. provides no warranty or guarantee of the accuracy or completeness of information in this document.
== END 2024-01-26 19:08 | disposition home or self-care (01) ==
LOC: LAB 19:07
PROVIDERS: Visit Provider Obstetrics & Gynecology
DX: Z34.93 Encounter for supervision of normal pregnancy, unspecified, third trimester (principal)
CPT/HCPCS: 87081

== ENCOUNTER 2024-02-20 05:02 | Inpatient (IN) | payer BC, SELFPAY ==
[2024-02-20] VITALS (54 sets, daily range): BP systolic 91–133; BP diastolic 54–91; PULSE 76–129; RESP 16; TEMP 26.5–36.8
--- OUTSIDE RECORDS SUMMARY | 2024-02-20 05:06 | XMS_ITS | CCD ---
Author Organization [facility] Care Team Providers Care Health Plan Manager Name Role Phone Behzad Dumas Primary Care Provider MARKER, ROBBY Admitting Unavailable MARKER, ROBBY Attending Unavailable MISC, DOCTOR Consulting Unavailable MARKER, ROBBY Consulting Unavailable KIRSCHMANN, ALCON Consulting Unavailable JOVITA, DAMIAN Consulting Unavailable SELF, SELF Referring Unavailable LUZMA, BEHZAD Attending Unavailable BEHZAD DUMAS Primary Care Unavailable Ray BARKER, Tasia Primary Care Provider Ray TOSCANO-Tasia LIGHT Primary Care Provider JOSI, PAULINA Attending Unavailable EVETTE, AIDEE Attending Unavailable EVETTE, AIDEE Attending Unavailable JOSI, PAULINA Attending Unavailable EVETTE, AIDEE Attending Unavailable JOSI, PAULINA Attending Unavailable JOSI, PAULINA Attending Unavailable EVETTE, AIDEE Attending Unavailable EVETTE, AIDEE Attending Unavailable EVETTE, AIDEE Attending Unavailable Medications Current Medications Medication Drug [...] low weight; and growth retardation (2 sources) Srpim-wcb-iygiz baby; Translations: [ small for gestational age, unspecified weight] 01-05-2024 [...] UA Negative Negative - 4(70) +++ mg/dL [facility] Blood, UA Negative Negative - 50 Santiago/mcL [facility] Clarity, UA Clear [facility] re Color, UA Yellow [facility] Glucose, UA Negative Negative - 1999(110) ++++ mg/dL [facility] Interpretation and review of laboratory results Normal [facility] Ketones, UA Negative Negative - 160(16) ++++ mg/dL [facility] Leukocytes, UA Negative Negative - 500+++ Peri/mcL [facility] Nitrite, UA Negative Negative - Positive [facility] pH, UA 6.0 5 - 9 [facility] e Protein, UA Negative Negative - 1999(20) ++++ mg/dL [facility] Spec Grav, UA 1.020 1 - 1.03 [facility] Urobilinogen, UA 0.2 0.2 - 12 mg/dL [facility] TEMP BONES WO IVCONon CT TEMP BONES WO IVCON * * *Final Report* * * DATE OF EXAM: Jun 17 2022 6:34PM [facility] 0512 - CT TEMP BONES WO IVCON [...] Skull Base: No evidence of bony destruction. Oil Drilling Engineer (topogram) images: No additional findings. IMPRESSION: NORMAL STUDY. Insect Control Aide: KAITLYN Transcribe Date/Time: Jun 17 2022 6:45P Dictated by : GREYSON TSAI DO This examination was interpreted and the report reviewed and electronically signed by: MEGAN MARX MD on Jun 17 2022 6:58PM EST [id number] Normal [facility] ED NOTEon 06-17-2022 ED NOTE HNO ID: [id number] Author: Harika Khoury RN Service: Emergency Medicine Author Type: Registered Nurse Type: ED Notes Filed: 06/17/2022 7:34 PM Note Text: Discharge instructions provided to patient and family. Verbalized understanding. Alert and oriented. Ambulated with steady gait out of ED with family. Normal [facility] ED NOTE HNO ID: [id number] Author: Rubio Platt RN Service: Nursing Author [...] to assess and monitor the patient Normal [facility] ED PROV NOTEon 06-17-2022 ED PROV NOTE HNO ID: [id number] Author: Cuong Lopez MD Service: Emergency Medicine [...] she saw an an ENT PA at [facility] who diagnosed her with a cholesteatoma [...] with recent bouts of ear pain/otitis, primary Pantograph I Engraver diagnosed likely cholesteatoma, recommended CT, patient concerned re: invasion/spread/mor (more content not included)... Normal [facility] CONSULTon 06-04-2022 CONSULT HNO ID: [id number] Author: Carolann Pruitt MD Service: Otolaryngology Author [...] she states she will follow up with [facility] - Reassured patient - Please page Head and Neck Surgery with any questions or concerns Carolann Pruitt MD PGY-2 Otolaryngology- Head and Neck Surgery Pager: [phone] For all concerns from 5pm to 7am or on the weekends please page [phone]. - - - - - - - [...] PGY-2 Otolaryngology- Head and Neck Surgery Pager: [phone] For all concerns from 5pm to 7am or on the weekends please page [phone]. Normal [facility] ED NOTEon 07-08-2022 ED NOTE HNO ID: [id number] Author: Kennedi Brown RN Service: Emergency Medicine Author Type: Registered Nurse Type: ED Notes Filed: 06/04/2022 12:43 AM Note Text: This RN to the room to provide pt with DC/Follow up/Care instructions. Pt verbalizes understanding. Pt ambulates with steady gait, moves all extremities independently, chest rise and fall equal, resps easy unlabored, no signs of distress noted. Normal [facility] ED NOTE HNO ID: [id number] Author: Kennedi Brown RN Service: Emergency Medicine Author Type: Registered Nurse Type: ED Notes Filed: 06/04/2022 12:06 AM Note Text: ENT and Attending at Bedside Normal [facility] ED PROV NOTEon 06-04-2022 ED PROV NOTE HNO ID: [id number] Author: Tyler Brock MD Service: Emergency Medicine [...] 06/15 and additionally arranged ENT appointment at [facility]. MDM / Disposition / Plan 26yo F with Hx of chronic otitis media presented with ear pain and discharge, was told by urgent clinic care [facility] yesterday to be evaluated by ENT at ED for possible cyst. Seen by ENT agent contract clerk at ED, and thought it is stable [...] 0020 At (more content not included)... Normal [facility] ED NOTEon 06-03-2022 ED NOTE HNO ID: [id number] Author: Janell Murry, CT Service: Emergency Medicine Author Type: Clinical Station Chief Type: ED Notes Filed: 06/03/2022 7:15 PM Note Text: Taking pt vs. Normal [facility] MRI BRAIN WITHOUT CONTRASTon 08-08-2020 IMPRESSION: No intracranial abnormality. Normal MRI of the brain without contrast. [facility] EXAMINATION: MRI OF THE BRAIN WITHOUT CONTRAST [...] The soft tissues demonstrate no acute abnormality. [employer] User, Interfaces - 08/08/2020 2:09 PM EDT [...] Normal MRI of the brain without contrast. [employer] XR TOES RT MIN 2 Von 020 [...] oblique views. 2. No dislocation. Normal [facility] Vital Signs Date Time Vital Sign Value Performing Clinician Barron aguilera 01-05-2024 11:40-0500 Body weight 93.8 kg [employer] DO Work Phone: [facility] 01-05-2024 11:40-0500 Diastolic blood pressure 70 mm[Hg] Venuu Evette DO Work Phone: [facility] 01-05-2024 11:40-0500 Systolic blood pressure 106 mm[Hg] Venuu Evette DO Work Phone: [facility] 09-11-2019 12:49-0400 BMI (Body Mass Index) 26.96 kg/m2 Behzad Dumas [facility] 09-11-2019 12:49-0400 Body Temperature 97.11 [degF] Behzad [facility] 09-11-2019 12:49-0400 Body weight 73.48 kg Behzad [facility] 09-11-2019 12:49-0400 BP Diastolic 72 mm[Hg] [facility] 09-11-2019 12:49-0400 BP Systolic 112 mm[Hg] [facility] 09-11-2019 12:49-0400 Height 165.1 cm [facility] 09-11-2019 12:49-0400 Pulse (Heart Rate) 53 /min [facility] 09-11-2019 12:49-0400 Pulse Oximetry 98 % [facility] 09-11-2019 12:49-0400 Respiratory Rate 16 /min [facility] En[facility] Date Encounter Type Care Provider Facility Start: 02-14-2024 End: 02-14-2024 ambulatory AIDEE EVETTE Not Available Start: 02-07-2024 End: 02-07-2024 ambulatory AIDEE EVETTE Not Available Start: 02-02-2024 End: 02-02-2024 ambulatory PAULINA JOSI Not Available Start: 01-26-2024 End: 01-26-2024 ambulatory AIDEE EVETTE Not Available Start: 01-19-2024 End: 01-19-2024 ambulatory PAULINA JOSI Not Available Start: 01-10-2024 Juan Francisco harry MELTER ASSISTANT-MACHINE II ENGRAVER Work Phone: [facility] Comment [...] Available Start: 11-17-2023 End: 11-17-2023 ambulatory AIDEE ALAS Not Available Start: 10-18-2023 End: 10-18-2023 ambulatory PAULINA PRATER Not Available Start: 10-29-2021 ambulatory SELF SELF [facility] ([place]) Start: 08-08-2020 End: 08-08-2020 Subsequent hospital visit by physician Behzad Dumas Work Phone: [facility] Comment on above: Arrived Start: 02-05-2020 End: 02-06-2020 Patient encounter procedure ROBBY MARKER Facility:[facility] Start: 09-11-2019 End: 09-11-2019 Letter encounter Provider [place] [facility] Start: 09-11-2019 End: 09-11-2019 Office outpatient visit 15 minutes Behzad Dumas Work Phone: [facility] Comment on above: Anxiety (Primary Dx) Start: 08-04-2019 End: 08-04-2019 Refill Behzad Dumas Work Phone: [facility] Comment on above: Anxiety (Primary Dx) Start: 07-24-2019 End: 07-24-2019 Letter encounter Behzad Dumas Work Phone: [facility] Start: 06-28-2019 End: 06-28-2019 Refill Behzad Dumas Work Phone: [facility] Comment on above: Anxiety Start: 06-20-2019 End: 06-20-2019 Refill Behzad Dumas Work Phone: [facility] Start: 06-14-2019 End: 06-14-2019 Letter encounter Behzad Dumas Work Phone: [facility] Start: 06-14-2019 End: 06-14-2019 Refill Behzad Dumas Work Phone: [facility] Procedures Date Procedure Procedure Detail Performing Clinician Start: 01-05-2024 Urnls dip stick/tabl et rgnt non-auto w/o micrscp Aidee Alas DO Work Phone: Start: 07-06-2023 Adult depression scr eening assessment Tasia Mcdonnells [facility] Work Phone: Start: 05-17-2022 Microscopic observat ion [Identifier] in Cervix by Cyto stain Tasia Mcdonnells [facility] Work Phone: Start: 08-08-2020 MRI of brain and bra in stem Behzad Dumas Work Phone: Plan of Treatment Date Care Activity Detail Author Start: 05-17-2025 Screening for malign ant neoplasm of cervix Pap Smear [facility] Start: 07-06-2024 Adult BMI Screening Adult BMI Screen ing [facility] Start: 07-06-2024 Depression Screening Depression Scre ening [facility] Start: 07-06-2024 Tobacco Screening Tobacco Screening [facility] Start: 03-28-2024 End: 03-28-2024 Clinical Support [facility] - [facility] Start: 01-19-2024 End: 01-19-2024 Patient encounter procedure 01/19/2024 2:00 PM EST Routine [facility] [address] [facility] [place] [id number] Paulina Prater PA [address] [place] [address] [facility] Start: 01-09-2024 End: 01-09-2024 Professional / ancillary services management 01/09/2024 1:00 PM EST Ancillary Procedure [facility] [address] [place] [address] [facility] Start: 01-05-2024 End: 01-05-2025 US for US OB SCAN FOR GROWTH Imaging Routine Small for gestational age Expected: 01/05/2024 (Approximate), Expires: 01/05/2025 [facility] Work Phone: Comment on above: Expected: 01/05/2024 (Approximate), Expires: 01/05/2025 Start: 11-03-2023 Adult BMI Follow Up Plan Adult BMI Follow Up Plan [facility] Start: 07-29-2023 Influenza vaccination Influenza Vacc ine [facility] Start: 07-29-2020 Influenza vaccination INFLUENZA VACC INE (#1) [facility] Start: 09-11-2019 End: 09-11-2019 Office Visit 09/11/2019 Office Visit Family Medicine/Behzad Ruth, [address] [address] [phone] Arrived [facility] Comment on above: Arrived Start: 07-29-2019 Influenza vaccination INFLUENZA VACC INE (#1) [facility] Start: 07-18-2019 End: 07-18-2019 Office Visit 07/18/2019 Office Visit Family Medicine/Behzad Ruth, [address] [address] [phone] [facility] Start: 2017 Screening for malign ant neoplasm of cervix [facility] Start: 2015 DTaP,Tdap and Td Vac cines (1 - Tdap) DTaP,Tdap and Td Vaccines (1 - Tdap) [facility] Start: 2015 Third diphtheria, te tanus and acellular pertussis (DTaP) vaccination TDAP (ADULT) [facility] Start: 2014 Tetanus vaccination [facility] Start: 2012 Screening for Chlamy axel trachomatis CHLAMYDIA SCREEN [facility] Start: 2011 Vaccination for brando n papillomavirus HPV VACCINE ADOL (1 - Female 3-dose series) [facility] Start: 2009 HIV screening HIV SCREENING DISCUSSION [facility] Start: 2007 Vaccination for brando n papillomavirus HPV VACCINE ADOL (1 - 2-dose series) [facility] Start: 1996 GONORRHEA SCREEN GONORRHEA SCREEN [facility] Payers Date Payer Category Payer Unknown BCBS BCBS xxxxxx [id number] 2023-Present [phone] [address] [place] [address] [id number] 2023 Unknown [id number] 2022 Private Health Insurance ZENIA KNUTSON [id number] 2022-Present [phone] [address] [place] [address] [id number] 2016 Unknown [employer] [place] xxxxxxxxxxxx 2016-Present [id number] 2016 Unknown [employer] [place] [id number] 2016-Present [id number] 1996 Unknown [id number] 1996 Unknown [id number] .158 1996 Unknown [id number] .1259 1996 Unknown [id number] .1259 1996 Unknown [id number] .1259 1996 Unknown [id number] .1259 1996 Unknown [id number] .1259 1996 Unknown [id number] .1259 1996 Unknown [id number] [id number] .1259 1996 Unknown [id number] [id number] .1259 1996 Unknown [id number] [id number] .9 1996 Unknown [id number] .[id number] 1959 Unknown [id number] Social History Date Type Detail Facility Start: 06-12-2018 End: 09-22-2022 Tobacco smoking status NEIS Never smoker [facility] Start: 01-05-2017 Alcohol Comment rarely [facility] Start: 1996 Sex Assigned At Not on file [facility] Start: 06-12-2018 End: 01-08-2021 Alcohol intake Yes [facility] Start: 08-05-2020 End: 09-22-2022 Tobacco use and exposure Never used [facility] Start: 08-05-2020 Alcohol intake Current drinke r of alcohol (finding) [facility] Exposure to SARS-CoV -2 (event) Not sure [facility] Tobacco smoking stat [facility] Tobacco smoking consumption unknown [facility] Start: 06-02-2023 [facility] Start: 07-06-2023 Alcohol intake Ex-drinker (finding) [facility] Start: 01-08-2021 End: 07-06-2023 History of Social function [facility] Adolescent depressio n screening assessment 0 [facility] History of Present illness Narrative 01-05-2024 Aidee Alas DO - 01/05/2024 11:30 AM EST Note Date & Type Note Facility 01-05-2024 History of Presen t illness Narrative Reason for Appointment: Patient ID: Kamron Hodge is a 28 y.o. female who [...] nursing note reviewed. Exam conducted with a rope maker present. Vitals: There is no height or [...] Aidee Alas DO documented in this encounter [facility] Progress note 06-17-2022 Note Date & Type Note Facility 06-17-2022 Note HNO ID: [id number] Author: Sage Marx Jr., CT Service: Radiology Author Type: Station Chief Type: Progress Notes Filed: 06/17/2022 6:37 PM [...] Horner Jr June 17, 2022 6:36 PM [facility] Evaluation note Note Date & Type Note Facility Evaluation note Diagnosis Third trimester state, incidental Small for gestational age Kesdm-kej-hmeqf without mention of malnutrition, unspecified (weight) documented in this encounter [facility] Evaluation note Note Date & Type Note Facility Evaluation note Diagnosis Anxiety and depression documented in this encounter [facility] Instructions Note Date & Type Note Facility Instructions Not on filedocumented in this en counter [facility] History of Present Illness * Behzad Dumas, [...] visual disturbance Procedures MRI BRAIN WITHOUT CONTRAST NE MRI BRAIN eBhzad Dumas DO [address] [place] [id number] Additional Source Comments Reason for Visit (unrecogniz ed section and content) Reason Comments Medication Refill Reason Comments Anxiety Pt denies any issues . Denies any side effects on Celexa. Feels it works good. Status Reason Specialty Diagnoses / Procedures Re ferred By Contact Referred To Contact Closed Diagnoses Chronic nonintractable headache, unspecified headache type Episode of visual disturbance Procedures MRI BRAIN WITHOUT CONTRAST NE MRI BRAIN Behzad Dumas DO [address] [facility] [address] [place] [address] Reason Comments Routine Visit Reason Comments Med Refill INFORMATION SOURCE (unrecogn ized section and content) DATE CREATED AUTHOR 02/07/2020 [facility] DATE CREATED AUTHOR AUTHOR'S ORGANIZ ATION 10/31/2021 [facility] ([place]) DATE CREATED AUTHOR AUTHOR'S ORGANIZ ATION 06/19/2022 [facility] DATE CREATED AUTHOR AUTHOR'S ORGANIZ ATION 02/15/2024 [facility] dical Specialists EPIC Care Teams (unrecognized sec tion and content) Health Plan Manager Relationship Specialty Start Date End Date Tasia Bell MD [address] [facility] [address] [place] [address] PCP - General Family Medicine 07/22/23 Health Plan Manager Relationship Specialty Start Date End Date Tasia Bell APRN-MACHINE II ENGRAVER PCP - General Nurse Practitioner 06/20/23 FOR [...] BE BASED ON THE PRIMARY CLINICAL RECORDS. [employer] provides no warranty or guarantee of the accuracy or completeness of information in this document.
[2024-02-20 05:45] LABS: Hematocrit 32.4 % (36.0-48.0); Hemoglobin 10.4 g/dL (12.0-16.0); Mean Corpuscular HGB Conc 32.1 g/dL (29.9-35.2); Mean Corpuscular Hemoglobin 26.5 pg (26.7-34.0); Mean Corpuscular Volume 82.4 fL (81.0-99.0); Mean Platelet Volume 10.2 fL (9.5-13.5); Platelet Count 295 10^3/uL (150-450); Red Blood Count 3.93 10^6/uL (4.20-5.40); Red Cell Distribution Width 12.8 % (11.0-15.0)
[2024-02-20 06:00] LABS: Amphetamine Screen Urine NEGATIVE (NEGATIVE); Barbiturates Screen Urine NEGATIVE (NEGATIVE); Benzodiazepines Screen Urine NEGATIVE (NEGATIVE); Buprenorphine Screen Urine NEGATIVE (NEGATIVE); Cannabinoid Screen Urine NEGATIVE (NEGATIVE); Cocaine Screen Urine NEGATIVE (NEGATIVE); Methadone Screen Urine NEGATIVE (NEGATIVE); Methamphetamines Screen Urine NEGATIVE (NEGATIVE); Opiate Screen Urine NEGATIVE (NEGATIVE); Oxycodone Screen Urine NEGATIVE (NEGATIVE); Phencyclidine Screen Urine NEGATIVE (NEGATIVE); Tricyclic Antidepressant Urine NEGATIVE (NEGATIVE)
[2024-02-20] MEDS: 0.9 % SODIUM CHLORIDE 1,000 ML 125 ML IV ×3 (06:11→18:39)
[2024-02-20] MEDS: OXYTOCIN/0.9 % SODIUM CHLORIDE 10 UNITS/500 ML PLAST..BAG 6 UNIT IV (06:11)
[2024-02-20] MEDS: 0.9 % SODIUM CHLORIDE 1,000 ML 1000 ML IV (16:20)
[2024-02-20] MEDS: ROPIVACAINE HCL/PF 400 MG/200 ML PREMIX 6 MG EPIDURAL (16:48)
[2024-02-20] MEDS: OXYTOCIN/0.9 % SODIUM CHLORIDE 10 UNITS/500 ML PLAST..BAG 60 UNIT IV (18:37)
--- NOTE | 2024-02-20 19:55 | W.PC.ACHO ---
Registration Status: ADM IN Primary Language: Preferred Language: Yakut Report given Rodolfo MALAGON at 1900. Active Medications Generic Name Dose Route Start Last Admin Trade Name Freq PRN Reason Stop Dose Admin Carboprost Tromethamine 250 mcg 02/20/24 05:09 Carboprost Tromethamine 250 Mcg/Ml 1 Ml Vial IM 02/22/24 05:09 Q15M PRN Bleeding Celecoxib 30 mg 02/21/24 08:00 Citalopram Hydrobromide 20 Mg Tablet PO QD FADUMO Diphenhydramine HCl 25 mg 02/20/24 10:29 Diphenhydramine Hcl 50 Mg/Ml (1ml) Vial IV 02/21/24 10:29 Q6H PRN Itching Ephedrine Sulfate 5 mg 02/20/24 10:29 Ephedrine Sulfate 50 Mg/Ml Vial IV 02/21/24 10:29 Q5M PRN Blood Pressure - Low Fentanyl Citrate 100 mcg 02/20/24 10:29 Fentanyl Citrate/Pf 100 Mcg/2 Ml Vial EPIDURAL ONCE PRN epidural Fentanyl Citrate 100 mcg 02/20/24 10:29 Fentanyl Citrate/Pf 100 Mcg/2 Ml Vial EPIDURAL ONCE PRN epidural Sodium Chloride 1,000 mls @ 125 mls/hr 02/20/24 05:30 02/20/24 18:39 Sodium Chloride 0.9% 1,000 Ml IV 125 mls/hr .Q8H FADUMO Administration Oxytocin/Sodium Chloride 10 units in 500 mls @ 6 mls/hr 02/20/24 05:15 02/20/24 18:37 Pitocin 10 Unit/500 Ml-Ns IV 20 milliunit/min TITR FADUMO 60 mls/hr Administration Protocol 2 MILLIUNIT/MIN Oxytocin/Sodium Chloride 20 units in 1,000 mls @ 125 mls/hr 02/20/24 05:09 Pitocin 20 Unit/1,000 Ml-Ns IV Q8H PRN POST DELIVERY Ropivacaine/Sodium Chloride 400 mg in 200 mls @ 6 mls/hr 02/20/24 10:30 02/20/24 16:48 Naropin 0.2% 400 Mg/200 Ml Bag EPIDURAL 6 mls/hr Q24H FADUMO Administration Lidocaine 5 ml 02/20/24 05:09 Lidocaine Viscous 2% 15 Ml Solution TOPICAL ONCE PRN Pain Lidocaine 1 ml 02/20/24 05:09 Lidocaine Hcl 1% 200 Mg/20 Ml Mdv INJ ONCE PRN Pain Lidocaine 5 ml 02/20/24 10:29 Lidocaine Hcl 2% Pf 100 Mg/5 Ml Vial INJ 02/21/24 10:29 Q1H PRN Epidural Methylergonovine Maleate 0.2 mg 02/20/24 05:09 Methylergonovine Maleate 0.2 Mg/Ml Ampule IM 02/22/24 05:09 ONCE PRN Uterine Contractility/Contract Methylergonovine Maleate 0.2 mg 02/20/24 05:09 Methylergonovine Maleate 0.2 Mg Tablet PO 02/22/24 05:09 Q4H PRN Uterine Contractility/Contract Misoprostol 600 mcg 02/20/24 05:09 Misoprostol 100 Mcg Tablet PO 02/22/24 05:09 ONCE PRN Uterine Bleeding Misoprostol 800 mcg 02/20/24 05:09 Misoprostol 100 Mcg Tablet SL 02/22/24 05:09 ONCE PRN Uterine Bleeding Misoprostol 1,000 mcg 02/20/24 05:09 Misoprostol 100 Mcg Tablet AK 02/22/24 05:09 ONCE PRN Uterine Bleeding Naloxone HCl 0.4 mg 02/20/24 10:29 Naloxone Hcl 0.4 Mg/Ml Vial IV 02/21/24 10:29 ONCE PRN Respiratory Distress Ondansetron HCl 4 mg 02/20/24 05:09 Ondansetron Pf 4 Mg/2 Ml Vial IV Q6H PRN Nausea And Vomiting Ondansetron HCl 4 mg 02/20/24 05:09 Ondansetron 4 Mg Rapdis Tablet SL Q6H PRN Nausea And Vomiting Oxytocin 10 unit 02/20/24 05:09 Oxytocin 10 Unit/Ml Vial IM 02/22/24 05:09 ONCE PRN Bleeding Diet Category Date Time Status Regular Consistency Diet Diet 02/20/24 05:10 Active Consults Category Date Time Status Consult to Anesthesiology Routine Cons 02/20/24 Ordered IV Insertion/Site Date of IV Line Insertion [20g 02/20/24 right Wrist] IV Insertion Time [20g right 05:35 Wrist] Neurology Patient orientation (short person,place,time,situation list) Respiratory Oxygen Delivery Method Room Air Catheter Urinary Catheter Date of 02/20/24 Insertion [Urethral] Urinary Catheter Time of 17:40 Insertion [Urethral]
[2024-02-20] MEDS: OXYTOCIN/0.9 % SODIUM CHLORIDE 20 UNITS/1,000 ML PLAST..BAG 125 UNIT IV (22:44)
--- NOTE | 2024-02-20 22:50 | PM.OBPRCVD ---
Procedure Intrapartal events: None Induction method: per pitocin protocol Delivery augmentation: rupture of membranes and pitocin Delivery monitor: external FHT and external uterine Route of delivery: Episiotomy Description: none L&D Laceration Description: perineal - 1st degree Delivery repair: Vicryl Estimated blood loss (mL): 200 Anesthesia type: Epidural Disposition: floor Infant Delivery date: 02/20/24 Gender: female presentation: vertex Placental delivery description: Spontaneous cord description: 3 Vessels
[2024-02-20] MEDS: IBUPROFEN 600 MG TABLET PO (23:39)
[2024-02-20] MEDS: GLYCERIN/WITCH HAZEL PADS 1 PAD TOPICAL (23:39)
[2024-02-20] MEDS: BENZOCAINE/MENTHOL 85 GRAM SPRAY BOTTLE 1 APPLIC TOPICAL (23:40)
[2024-02-20] MEDS: LIDOCAINE HCL 1% 200 MG/20 ML MDV INJ (23:42)
[2024-02-21] VITALS (7 sets, daily range): BP systolic 106–117; BP diastolic 59–71; PULSE 65–86; RESP 16; TEMP 35.9
[2024-02-21 06:09] LABS: Basophils Percent Auto 0.2 % (0.2-2.0); Eosinophils Absolute Auto 0.1 10^3/uL (0.0-0.7); Eosinophils Percent Auto 0.4 % (0.9-7.0); Hemoglobin 9.9 g/dL (12.0-16.0); Immature Granulocytes Pct Auto 0.6 % (0.0-0.5); Lymphocytes Absolute Auto 1.4 10^3/uL (1.2-3.8); Mean Corpuscular HGB Conc 31.9 g/dL (29.9-35.2); Mean Corpuscular Hemoglobin 26.6 pg (26.7-34.0); Mean Corpuscular Volume 83.3 fL (81.0-99.0); Mean Platelet Volume 9.9 fL (9.5-13.5); Monocytes Absolute Auto 1.2 10^3/uL (0.3-0.8); Monocytes Percent Auto 7.1 % (1.7-12.0); Neutrophils Absolute Auto 14.5 10^3/uL (1.4-6.5); Neutrophils Percent Auto 83.7 % (43.0-75.0); Platelet Count 245 10^3/uL (150-450); Red Blood Count 3.72 10^6/uL (4.20-5.40); Red Cell Distribution Width 13.1 % (11.0-15.0); White Blood Count 17.3 10^3/uL (4.0-11.0)
--- NOTE | 2024-02-21 08:37 | PM.OBPN ---
OB - PN: Subj Subjective Patient comments: no complaints [place] status: doing well feeding status: exclusively Exam Constitutional Vital Signs, click to edit/add: Last Vital Signs Temp 97.5 F L 02/20/24 21:06 Pulse 65 02/21/24 01:14 Resp 16 02/20/24 18:45 BP 117/61 02/21/24 01:14 O2 Del Method Room Air 02/20/24 05:35 Documenting provider has reviewed patient's vital signs: yes Common normals: no apparent distress and oriented x3 General appearance: cooperative, comfortable and well kempt Orientation/consciousness: Yes awake, Yes oriented to person, Yes oriented to place and Yes oriented to time HENMT Common normals: normocephalic Eye Common normals: EOMs intact bilaterally General eye: normal appearance of both eyes Neck & C-Spine Common normals: full ROM and no lymphadenopathy Lymph Lymphatic: no lymphadenopathy noted Chest Common normals: inspection of chest normal Respiratory Common normals: normal respiratory effort Effort & inspection: able to speak in complete sentences Auscultation: clear to auscultation bilaterally Cardio Common normals: regular rate and regular rhythm Rate: regular rate Rhythm: regular rhythm GI Common normals: Normal to inspection, nondistended, normoactive bowel sounds present Inspection: normal to inspection Auscultation: normoactive bowel sounds Palpation: soft Common normals: no CVA tenderness Back & Pelvis Common normals: no CVA tenderness Extremity Common normals: normal to inspection and full ROM Neuro Common normals: oriented x3 Sensorium/orientation: awake, alert, oriented to person, oriented to place and oriented to time Psych Common normals: mental status grossly normal, thought process normal and cooperative Results Labs Labs: Short CBC 02/21/24 Range/Units 06:01 WBC 17.3 H (4.0-11.0) 10^3/uL Hgb 9.9 L (12.0-16.0) g/dL Hct 31.0 L (36.0-48.0) % Plt Count 245 (150-450) 10^3/uL Urinary Catheter Management Urinary Catheter Management Urethral: Cath placed during this visit: yes Urethral indwelling: No Insertion date: 02/20/24 Insertion time: 17:40 OB - PN: A/P Plan - Vaginal Delivery day: 1 Plan: routine care Time Spent with Patient Time: Total time spent is greater than 50% in coordination of care (as documented) at patient's floor/unit and/or counseling patient: Total time spent with greater than 50% in coordination of care (as documented) at patient's floor/unit and/or counseling patient: less than 15 minutes
[2024-02-21] MEDS: DOCUSATE SODIUM 100 MG CAPSULE PO (08:47)
[2024-02-21] MEDS: CITALOPRAM HYDROBROMIDE 20 MG TABLET 30 MG PO (08:47)
[2024-02-21] MEDS: IBUPROFEN 600 MG TABLET PO ×2 (09:29→16:35)
[2024-02-22] MEDS: IBUPROFEN 600 MG TABLET PO ×3 (01:03→15:38)
[2024-02-22 01:41] VITALS: BP 116/76; PULSE 71; TEMP 36.7
[2024-02-22] MEDS: ACETAMINOPHEN 325 MG TABLET 650 MG PO (01:50)
[2024-02-22 07:34] VITALS: BP 117/68; PULSE 65
--- NOTE | 2024-02-22 07:34 | P.OBPN_ITS ---
OB - PN: Subj Subjective Patient comments: no complaints and pain well controlled [place] status: doing well Exam Constitutional Vital Signs, click to edit/add: Last Vital Signs Temp 98.0 F 02/22/24 01:41 Pulse 71 02/22/24 01:41 Resp 16 02/20/24 18:45 BP 116/76 02/22/24 01:41 O2 Del Method Room Air 02/20/24 05:35 Documenting provider has reviewed patient's vital signs: yes Common normals: no apparent distress Respiratory Common normals: clear to auscultation bilaterally Cardio Common normals: regular rate and regular rhythm GI Common normals: Normal to inspection, nondistended, normoactive bowel sounds present Extremity Common normals: no clubbing, cyanosis or edema and no calf tenderness Urinary Catheter Management Urinary Catheter Management Urethral: Cath placed during this visit: yes Urethral indwelling: No Insertion date: 02/20/24 Insertion time: 17:40 OB - PN: A/P Plan - Vaginal Delivery day: 2 Plan: routine care, discharge home and follow up 6 weeks Time Spent with Patient Time: Total time spent is greater than 50% in coordination of care (as documented) at patient's floor/unit and/or counseling patient: Total time spent with greater than 50% in coordination of care (as documented) at patient's floor/unit and/or counseling patient: less than 15 minutes
[2024-02-22] MEDS: CITALOPRAM HYDROBROMIDE 20 MG TABLET 30 MG PO (07:44)
[2024-02-22] MEDS: DOCUSATE SODIUM 100 MG CAPSULE PO (07:46)
[2024-02-22 07:49] VITALS: RESP 16; TEMP 36.6
== END 2024-02-22 15:45 | disposition home or self-care (01) | DRG 807 ==
PROVIDERS: Admitting Provider Obstetrics & Gynecology; Visit Provider Obstetrics & Gynecology
DX: O70.0 First degree perineal laceration during delivery (principal); Z37.0 Single live birth; Z3A.39 39 weeks gestation of pregnancy
CPT/HCPCS: 36415; 59050; 59410; 80307; 85025; 85027; 86850; 86900; 86901; 96365; 96366

== ENCOUNTER 2024-02-29 08:12 | Outpatient (OUT) | payer BC, SELFPAY ==
--- OUTSIDE RECORDS SUMMARY | 2024-02-29 08:16 | XMS_ITS | CCD ---
Author Organization [facility] Care Team Providers Care Toy Consultant Name Role Phone Behzad Dumas Primary Care Provider MARKER, ROBBY Admitting Unavailable MARKER, ROBBY Attending Unavailable MISC, DOCTOR Consulting Unavailable MARKER, ROBBY Consulting Unavailable KIRSCHMANN, ALCON Consulting Unavailable JOVITA, DAIMAN Consulting Unavailable SELF, SELF Referring Unavailable LUZMA, [...] low weight; and growth retardation (2 sources) Cgssp-xsw-czjis baby; Translations: [[place] small for gestational age, unspecified weight] 01-05-2024 [...] UA Negative Negative - 4(70) +++ mg/dL [facility] Blood, UA Negative Negative - 50 Santiago/mcL [facility] Clarity, UA Clear [facility] re Color, UA Yellow [facility], UA Negative Negative - 1999(110) ++++ mg/dL [facility] Interpretation and review of laboratory results Normal [facility] Ketones, UA Negative Negative - 160(16) ++++ mg/dL [facility] Leukocytes, UA Negative Negative - 500+++ Peri/mcL [facility] Nitrite, UA Negative Negative - Positive [facility] pH, UA 6.0 5 - [address] [facility] e Protein, UA Negative Negative - 1999(20) ++++ mg/dL [facility] Spec Grav, UA 1.020 1 - 1.03 [facility] Urobilinogen, UA 0.2 0.2 - 12 [facility]CON[facility] CT TEMP BONES WO IVCON * * *Final Report* * * DATE OF EXAM: Jun 17 2022 6:34PM [facility] 0512 - CT TEMP BONES WO IVCON [...] Skull Base: No evidence of bony destruction. Brake Repair Supervisor (topogram) images: No additional findings. IMPRESSION: NORMAL STUDY. Exterminator Helper Termite: KAITLYN Transcribe Date/Time: Jun 17 2022 6:45P Dictated by : GREYSON TSAI DO This examination was interpreted and the report reviewed and electronically signed by: MEGAN MARX MD on Jun 17 2022 6:58PM EST [id number] Normal [facility] ED NOTEon 06-17-2022 ED NOTE HNO ID: [id number] Author: Harika Khoury RN Service: Emergency Medicine Author Type: Registered Nurse Type: ED Notes Filed: 06/17/2022 7:34 PM Note Text: Discharge instructions provided to patient and family. Verbalized understanding. Alert and oriented. Ambulated with steady gait out of ED with family. Normal [facility] ED NOTE HNO ID: [id number] Author: Rubio Platt RN Service: Nursing Author [...] to assess and monitor the patient Normal [facility] ED PROV NOTEon 06-17-2022 ED PROV NOTE HNO ID: [id number] Author: Cuong Lopez MD Service: Emergency Medicine [...] she saw an an ENT PA at [facility] who diagnosed her with a cholesteatoma [...] with recent bouts of ear pain/otitis, primary Digital Research Analyst diagnosed likely cholesteatoma, recommended CT, patient concerned re: invasion/spread/mor (more content not included)... Normal [facility] CONSULTon 06-04-2022 CONSULT HNO ID: [id number] Author: Carolann Pruitt MD Service: Otolaryngology Author [...] PGY-2 Otolaryngology- Head and Neck Surgery Pager: [phone] For all concerns from 5pm to 7am or on the weekends please page [phone]. - - - - - - - [...] PGY-2 Otolaryngology- Head and Neck Surgery Pager: [phone] For all concerns from 5pm to 7am or on the weekends please page [phone]. Normal [facility] ED NOTEon 07-08-2022 ED NOTE HNO ID: [id number] Author: Kennedi Brown RN Service: Emergency Medicine Author Type: Registered Nurse Type: ED Notes Filed: 06/04/2022 12:43 AM Note Text: This RN to the room to provide pt with DC/Follow up/Care instructions. Pt verbalizes understanding. Pt ambulates with steady gait, moves all extremities independently, chest rise and fall equal, resps easy unlabored, no signs of distress noted. Normal [facility] ED NOTE HNO ID: [id number] Author: Kennedi Brown RN Service: Emergency Medicine Author Type: Registered Nurse Type: ED Notes Filed: 06/04/2022 12:06 AM Note Text: ENT and Attending at Bedside Normal [facility] ED PROV NOTEon 06-04-2022 ED PROV NOTE HNO ID: [id number] Author: Tyler Brock MD Service: Emergency Medicine [...] 06/15 and additionally arranged ENT appointment at [facility]. MDM / Disposition / Plan 26yo F with Hx of chronic otitis media presented with ear pain and discharge, was told by urgent clinic care [facility] yesterday to be evaluated by ENT at ED for possible cyst. Seen by ENT aviation safety inspector at ED, and thought it is stable [...] 0020 At (more content not included)... Normal [facility] ED NOTEon 06-03-2022 ED NOTE HNO ID: [id number] Author: Janell Murry, CT Service: Emergency Medicine Author Type: Clinical Director Of Campus Recreation Type: ED Notes Filed: 06/03/2022 7:15 PM Note Text: Taking pt vs. Normal [facility] MRI BRAIN WITHOUT CONTRASTon 08-08-2020 IMPRESSION: No intracranial abnormality. Normal MRI of the brain without contrast. [facility] EXAMINATION: MRI OF THE BRAIN WITHOUT CONTRAST [...] The soft tissues demonstrate no acute abnormality. [employer] User, Interfaces - 08/08/2020 2:09 PM EDT [...] Normal MRI of the brain without contrast. [facility] XR TOES RT MIN 2 Von 020 [...] oblique views. 2. No dislocation. Normal [facility] [place] Vital Signs Date Time Vital Sign Value Performing Clinician Barron aguilera 01-05-2024 11:40-0500 Body weight 93.8 kg nvite DO Work Phone: [facility] 01-05-2024 11:40-0500 Diastolic blood pressure 70 mm[Hg] [employer] Evette DO Work Phone: [facility] 01-05-2024 11:40-0500 Systolic blood pressure 106 mm[Hg] [employer] Evette DO Work Phone: [facility] 09-11-2019 12:49-0400 BMI (Body Mass Index) 26.96 kg/m2 Behzad Dumas [facility] 09-11-2019 12:49-0400 Body Temperature 97.11 [degF] Behzad [facility] 09-11-2019 12:49-0400 Body weight 73.48 kg Behzad [facility] 09-11-2019 12:49-0400 BP Diastolic 72 mm[Hg] [facility] 09-11-2019 12:49-0400 BP Systolic 112 mm[Hg] [facility] 09-11-2019 12:49-0400 Height 165.1 cm [facility] 09-11-2019 12:49-0400 Pulse (Heart Rate) 53 /min [facility] 09-11-2019 12:49-0400 Pulse Oximetry 98 % [facility] 09-11-2019 12:49-0400 Respiratory Rate 16 /min [facility] Encounters Encounter Date Encounter Type Care Provider Facility Start: 02-14-2024 End: 02-14-2024 ambulatory AIDEE EVETTE Not Available Start: 02-07-2024 End: 02-07-2024 ambulatory AIDEE EVETTE Not Available Start: 02-02-2024 End: 02-02-2024 ambulatory PAULINA JOSI Not Available Start: 01-26-2024 End: 01-26-2024 ambulatory AIDEE EVETTE Not Available Start: 01-19-2024 End: 01-19-2024 ambulatory PAULINA JOSI Not Available Start: 01-10-2024 Juan Francisco harry PERINATAL TECHNICIAN-VISUAL MERCHANDISE MANAGER Work Phone: [facility] Comment [...] Not Available Start: 10-29-2021 ambulatory SELF SELF [facility] [place] ([place]) Start: 08-08-2020 End: 08-08-2020 Subsequent hospital visit by physician Behzad Dumas Work Phone: [facility] Comment on above: Arrived Start: 02-05-2020 End: 02-06-2020 Patient encounter procedure ROBBY MARKER Facility:[facility] Start: 09-11-2019 End: 09-11-2019 Letter encounter Provider [facility] Start: 09-11-2019 End: 09-11-2019 Office outpatient visit 15 minutes Behzad Dumas Work Phone: [facility] Comment on above: Anxiety (Primary Dx) Start: 08-04-2019 End: 08-04-2019 Refill Behzad Dumas Work Phone: [facility] Comment on above: Anxiety (Primary Dx) Start: 07-24-2019 End: 07-24-2019 Letter encounter Behzad Dumas Work Phone: [facility] Start: 06-28-2019 End: 06-28-2019 Refill Behzad Dumas Work Phone: [facility] Comment on above: Anxiety Start: 06-20-2019 End: 06-20-2019 Refill Behzad Dumas Work Phone: [facility] Start: 06-14-2019 End: 06-14-2019 Letter encounter Behzad Dumas Work Phone: [facility] Start: 06-14-2019 End: 06-14-2019 Refill Behzad Dumas Work Phone: [facility] Procedures Date Procedure Procedure Detail Performing Clinician Start: 01-05-2024 Urnls dip stick/tabl et rgnt non-auto w/o micrscp Aidee Alas DO Work Phone: Start: 07-06-2023 Adult depression scr eening assessment Tasia Mcdonnells [facility]NIC[facility] Work Phone: Start: 05-17-2022 Microscopic observat ion [Identifier] in Cervix by Cyto stain Tasia Mcdonnells [facility] Work Phone: Start: 08-08-2020 MRI of brain and bra in stem Behzad Dumas Work Phone: Plan of Treatment Date Care Activity Detail Author Start: 05-17-2025 Screening for malign ant neoplasm of cervix Pap Smear [facility] Start: 07-06-2024 Adult BMI Screening Adult BMI Screen ing [facility] Start: 07-06-2024 Depression Screening Depression Scre ening [facility] Start: 07-06-2024 Tobacco Screening Tobacco Screening [facility] Start: 03-28-2024 End: 03-28-2024 Clinical Support [facility] - E[facility] Start: 01-19-2024 End: 01-19-2024 Patient encounter procedure 01/19/2024 2:00 PM EST Routine [facility] [address] [facility] [place] [id number] Paulina Prater PA [address] [place] [address] [facility] Start: 01-09-2024 End: 01-09-2024 Professional / ancillary services management 01/09/2024 1:00 PM EST Ancillary Procedure [facility] OB [address] [place] [address] [facility] Start: 01-05-2024 End: 01-05-2025 US for US OB SCAN FOR GROWTH Imaging Routine Small for gestational age Expected: 01/05/2024 (Approximate), Expires: 01/05/2025 [facility] Work Phone: Comment on above: Expected: 01/05/2024 (Approximate), Expires: 01/05/2025 Start: 11-03-2023 Adult BMI Follow Up Plan Adult BMI Follow Up Plan [facility] Start: 07-29-2023 Influenza vaccination Influenza Vacc ine [facility] Start: 07-29-2020 Influenza vaccination INFLUENZA VACC INE (#1) [facility] Start: 09-11-2019 End: 09-11-2019 Office Visit 09/11/2019 Office Visit Family Medicine/Behzad Ruth, [address] [address] [phone] Arrived [facility] Comment on above: Arrived Start: 07-29-2019 Influenza vaccination INFLUENZA VACC INE (#1) [facility] Start: 07-18-2019 End: 07-18-2019 Office Visit 07/18/2019 Office Visit Family Medicine/Behzad Ruth, [address] [address] [phone] [facility] Start: 2017 Screening for malign ant neoplasm of cervix [facility] Start: 2015 DTaP,Tdap and Td Vac cines (1 - Tdap) DTaP,Tdap and Td Vaccines (1 - Tdap) [facility] Start: 2015 Third diphtheria, te tanus and acellular pertussis (DTaP) vaccination TDAP (ADULT) [facility] Start: 2014 Tetanus vaccination [facility] Start: 2012 Screening for Chlamy axel trachomatis CHLAMYDIA SCREEN [facility] Start: 2011 Vaccination for brando n papillomavirus HPV VACCINE ADOL (1 - Female 3-dose series) [facility] Start: 2009 HIV screening HIV SCREENING DISCUSSION [facility] Start: 2007 Vaccination for brando n papillomavirus HPV VACCINE ADOL (1 - 2-dose series) [facility] Start: 1996 GONORRHEA SCREEN GONORRHEA SCREEN [facility] Payers Date Payer Category Payer Unknown BCBS BCBS [id number] 2023-Present [phone] [address] [place] [address] [id number] 2023 Unknown [id number] 2022 Private Health Insurance ZENIA KNUTSON [id number] 2022-Present [phone] [address] [place] [address] [id number] 2016 Unknown [employer] [place] [id number] 2016-Present [id number] 2016 Unknown [employer] M [place] [id number] 2016-Present [id number] 1996 Unknown [id number] 1996 Unknown [id number] .158 1996 Unknown [id number] .1259 1996 Unknown [id number] .1259 1996 Unknown [id number] .1259 1996 Unknown [id number] .1259 1996 Unknown [id number] .1259 1996 Unknown [id number] .1259 1996 Unknown [id number] .1259 1996 Unknown [id number] .1259 1996 Unknown [id number] .9 1996 Unknown [id number] .1259 1959 Unknown [id number] Social History Date Type Detail Facility Start: 06-12-2018 End: 09-22-2022 Tobacco smoking status TXIS Never smoker [facility] Start: 01-05-2017 Alcohol Comment rarely [facility] Start: 1996 Sex Assigned At Not on file [facility] Start: 06-12-2018 End: 01-08-2021 Alcohol intake Yes [facility] Start: 08-05-2020 End: 09-22-2022 Tobacco use and exposure Never used [facility] Start: 08-05-2020 Alcohol intake Current drinke r of alcohol (finding) [facility] Exposure to SARS-CoV -2 (event) Not sure [facility] Tobacco smoking stat [facility] Tobacco smoking consumption unknown [facility] Start: 06-02-2023 [facility] Start: 07-06-2023 Alcohol intake Ex-drinker (finding) [facility] Start: 01-08-2021 End: 07-06-2023 History of Social function [facility] Adolescent depressio n screening assessment 0 [facility] History of Present illness Narrative 01-05-2024 [...] nursing note reviewed. Exam conducted with a passenger screener present. Vitals: There is no height or [...] Type Note Facility 06-17-2022 Note HNO ID: [id number] Author: Sage Marx Jr., CT Service: Radiology Author Type: Director Of Campus Recreation Type: Progress Notes Filed: 06/17/2022 6:37 PM [...] Horner Jr June 17, 2022 6:36 PM [facility] Evaluation note Note Date & Type Note Facility Evaluation note Diagnosis Third trimester state, incidental Small for gestational age Juytr-vxd-hjyqd without mention of malnutrition, unspecified (weight) documented in this encounter [facility] Evaluation note Note Date & [...] CONTRAST NE MRI BRAIN Behzad Dumas DO [address] [place] [id number] Additional Source Comments Reason for Visit (unrecogniz [...] NE MRI BRAIN Behzad Dumas DO [address] [facility] [address] [place] [address] Reason Comments Routine Visit Reason Comments Med Refill INFORMATION SOURCE (unrecogn ized section and content) DATE CREATED AUTHOR 02/07/2020 [facility] DATE CREATED AUTHOR AUTHOR'S ORGANIZ ATION 10/31/2021 [facility] ([place]) DATE CREATED AUTHOR AUTHOR'S ORGANIZ ATION 06/19/2022 [facility] DATE CREATED AUTHOR AUTHOR'S ORGANIZ ATION 02/15/2024 [facility] dical Specialists EPIC Care Teams (unrecognized sec tion and content) Toy Consultant Relationship Specialty Start Date End Date Tasia Bell MD [address] [facility] [address] [place] [address] PCP - General Family Medicine 07/22/23 Toy Consultant Relationship Specialty Start Date End Date Tasia Bell APRN-VISUAL MERCHANDISE MANAGER PCP - General Nurse Practitioner 06/20/23 FOR [...] BE BASED ON THE PRIMARY CLINICAL RECORDS. [employer] provides no warranty or guarantee of the accuracy or completeness of information in this document.
--- NOTE | 2024-02-29 14:31 | PC.NURSE ---
CandiceErnesto lopez and 9 day old daughter, Yesenia, arrive for follow up visit. Candice extremely tired, states she has been up/awake every hour for the last 3 nights . Baby is feeding well at night, and every 3-4 hours during the day., mom uses nipple shield as baby wouldn't latch without it after . Mom has symmetrical breasts, palpate full, milk drips bilaterally, will latch but has irregular suck and effort at the breast. Shield placed and feeds well. Candice states please keep the shield for now and I will work on feeding here more during the day so she has enough calories so that she can sleep a stretch at night. Ernesto () went back to work on 02/27/2024 and she wants him to have full night sleep due to work. Feeding plan devised to allow mom 1 four hour stretch of sleep and dad to offer bottle of pumped milk. Mom to pump at bedtime after feeding Haven, dad will take next feeding with bottle while mom continues to sleep. Mom then will wake for other feeding as needed. Candice, VSS and assessment WNL. No concern except sleeping situation. and states I think a new plan for a couple of days will fix most of my concerns. Haven VSS and assessment WNL. Infant above weight at this time, parents are excited. Candice states at least my hard work is paying off Both parents have dealt with anxiety and depression prior to of child so are aware of S/S of mental healthcare crisis. Both states are doing okay, just big adjustment . Both states are well, with no concerns/ideation of harm to self or to anyone else. Plan to return 03/07/2024 for follow up support. Aware to call as needed prior to that day, aware of [facility] group as well.
[2024-02-29 14:33] VITALS: BP 109/77; PULSE 85; TEMP 36.7; O2SAT 97
== END 2024-02-29 14:37 | disposition home or self-care (01) ==
LOC: FBCO 08:13
PROVIDERS: Visit Provider Obstetrics & Gynecology
DX: Z39.2 Encounter for routine postpartum follow-up (principal)

== ENCOUNTER 2024-03-07 08:31 | Outpatient (OUT) | payer BC, SELFPAY ==
--- NOTE | 2024-03-07 11:53 | PC.NURSE ---
Candice and daughter Yesenia, 17 days old arrive for support. Candice is smiling and states we are finally getting sleep States is in a much better frame of mind than last visit. States baby is still using shield to feed but admits not trying to not use it either. Infant weight up from last visit, large wet and yellow seedy stool changed. to mom,Reviewed and demo'd positioning and hold for cross cradle latching.Haven is eager to latch, mom more hesitant. LC laces her hands over Candice's and guides gently for deep latch and successful positioning. Dad takes picture of positioning and latch so mom can use as a reference later. Baby finishes 20 min feed, quiet, alert and tracking voices. Parents asking many questions regarding not using shield and Candice states well now I don't want to use it. Independently latches baby to 2nd breast well. Leaves ambulatory with baby and , will attend [facility] BF group on 03/13/2024 for further support.
== END 2024-03-07 12:00 | disposition home or self-care (01) ==
LOC: FBCO 08:33
PROVIDERS: Visit Provider Obstetrics & Gynecology
DX: Z39.1 Encounter for care and examination of lactating mother (principal)
CPT/HCPCS: G0463